=== PATIENT | male | born 1945 | race Caucasian/White ===

== ENCOUNTER 2016-08-02 05:13 | Day surgery (SDC) | payer MEDICARE, OTHER ==
[2016-08-01 15:57] LABS: BASOPHILS 0.8 % (0.0-2.0); EOSINOPHILS 3.3 % (0-7); HEMATOCRIT 30.2 % (42.0-54.0); HEMOGLOBIN 9.7 g/dL (13.5-17.5); IMMATURE GRANULOCYTES 0.2 % (0-5); LYMPHOCYTES 10.8 % (15-50); MCH 30.4 pg (26.0-34.0); MCHC 32.1 g/dL (31.0-37.0); MCV 94.7 fL (80.0-100.0); MEAN PLATELET VOLUME 9.7 fL (7.4-10.4); MONOCYTES 6.3 % (2-11); NEUTROPHILS 78.6 % (40-80); PLATELET COUNT 111 10x3/uL (130-400); RBC 3.19 10x6/uL (4.20-6.10); RDW 14.2 % (11.5-14.5); WBC 4.9 10x3/uL (4.8-10.8)
[2016-08-01 16:12] LABS: INR 1.12 (0.85-1.17); PROTIME 14.2 SECONDS (11.6-15.0)
[2016-08-01 16:19] LABS: ANION GAP 16.1 mmol/L (8-16); CALCIUM 7.3 mg/dL (8.5-10.1); CARBON DIOXIDE 24.2 mmol/L (21.0-32.0); POTASSIUM - SERUM 4.3 mmol/L (3.5-5.1)
[~2016-08-02] VITALS: Ht 182.9 cm; Wt 124.7 kg
[~2016-08-02 05:13] MED LIST: CATAPRES0.1 MG PO; COREG25 MG PO; FUROSEMIDE20 MG PO; GLIPIZIDE10 MG PO; HYDRALAZINE HCL25 MG PO; LASIX80 MG PO; LOW DOSE ASPIRI81 M1 PO; PROBIOTIC1 EAC1 PO; PROSCAR5 MG PO; RENVELA800 MG PO; ZOCOR40 MG PO; ZYRTEC10 MG PO
[2016-08-02 07:00] VITALS: Ht 182.9 cm; Wt 124.7 kg
[2016-08-02] MEDS ORDERED: ULTRAM50 MG PO (09:55)
--- NOTE | 2016-08-02 11:11 | NUR ---
IV DC WITH CATHER TIP INTACT
--- NOTE | 2016-08-02 14:04 | OP ---
PATIENT NAME: PEYTON SHEPPARD MEDICAL RECORD: [id number] :44 LOCATION:[facility] ADMISSION DATE: SURGEON: CHANDNI STANTON MD DATE OF OPERATION: 08/02/2016 REFERRED BY: Gela Delgadillo MD PREOPERATIVE DIAGNOSIS: Chronic kidney disease stage V. POSTOPERATIVE DIAGNOSIS: Chronic kidney disease stage V. OPERATION PERFORMED: Creation of a left radiocephalic Martin-type AV fistula. SURGEON: Chandni Stanton MD ANESTHESIA: General plus regional nerve block by WILLI and Dr. Christiansen. PREOPERATIVE NOTE: Mr. Shpepard is a 71-year-old hypertensive diabetic man with failing kidneys and now CKD stage V. It is anticipated that he will require initiation of dialysis, probably this year or next. He was referred to me by Dr. Delgadillo for creation of a fistula. His preoperative vein mapping indicates the veins in the forearm and wrist to be rather small and I anticipate that will do a brachiocephalic or median cubital AV fistula if that proves to be the case. Under anesthesia and after the nerve block was administered of course, the arm was prepped and draped in a sterile manner. Topical nitroglycerin paste was applied and a [place] drain was used as a proximal venous tourniquet. Examination with ultrasound demonstrated the cephalic vein at the wrist to be greater than 5 mm in diameter and the radial artery looked healthy without significant atherosclerotic changes and certainly the proximal veins were very suitable for access. I elected to go ahead with a wrist fistula. A longitudinal incision was made and the cephalic vein and radial artery exposed. Branches and tributaries divided between ties, clips and divided with scissors and electrocautery. The vessels were controlled with Silastic loops and approximated side to side. After they were occluded, the vein was opened for approximately 8 mm and the vein was flushed proximally and distally with heparinized saline. A corresponding arteriotomy was then made and the artery flushed proximally and distally with heparinized saline and the anastomosis was then performed with running 7-0 Prolene. At its completion with release of the occluding loops and mandaen of proximal flow in the cephalic vein before distalward flow in the radial artery, excellent flow developed immediately in the fistula with a good pulsation and palpable thrill. Doppler examination confirmed. The wound was irrigated and infiltrated with 0.25% Marcaine with epinephrine. Topical papaverine had been used prior to the anastomosis and was not required afterwards. The wound was closed without the use of a drain with interrupted inverted 3-0 Vicryl and then running intracuticular 4-0 Monocryl and Dermabond glue. It was dressed with Maxorb Ag, Tegaderm and Cavilon skin prep and the patient then with great fistula was awakened and taken to the recovery room. Blood loss was trivial, certainly unreplaced. All sponges, instruments and needles were accounted for. No drain was used and no specimen was submitted for histopathology. OPERATIVE REPORT [id number] PEYTON SHEPPARD The patient will be discharged to home in [place] this morning. He will return to see me in my office in 2 weeks. He can resume activities, even bathing and showering and washing over the waterproof plastic dressing as desired. I would prefer that he leave the dressing intact if possible until he returns to see me in my office in 2 weeks. He is given a prescription for twenty 50 mg tramadol tablets 1 p.o. q.4 hours p.r.n. pain, no refills. TRANSINT:[id number] Voice Confirmation ID: [id number] DOCUMENT ID: [id number] CHANDNI STANTON MD at 1404 CC: GELA DELGADILLO MD [id number] DICTATION DATE: 08/02/16 1005 PEST CONTROL TECHNICIAN: 08/02/16 1052 [facility] [address] [place] [address]
== END 2016-08-02 11:25 | disposition home or self-care (01) ==
LOC: D.OPS 05:13 → D.PAN 08:00 → D.OPS 08:00
PROVIDERS: Surgery
DX: E11.22 Type 2 diabetes mellitus with diabetic chronic kidney disease (principal); I12.0 Hypertensive chronic kidney disease with stage 5 chronic kidney disease or end stage renal disease; N18.5 Chronic kidney disease, stage 5

== ENCOUNTER 2016-10-21 06:09 | Day surgery (SDC) | payer MEDICARE, OTHER ==
[2016-10-19 11:46] LABS: BASOPHILS 0.7 % (0-2); EOSINOPHILS 1.8 % (0-7); HEMATOCRIT 29.8 % (42.0-54.0); HEMOGLOBIN 9.7 g/dL (13.5-17.5); IMMATURE GRANULOCYTES 0.5 % (0-5); LYMPHOCYTES 12.7 % (15-50); MCH 31.2 pg (26.0-34.0); MCHC 32.6 g/dL (31.0-37.0); MCV 95.8 fL (80.0-100.0); MEAN PLATELET VOLUME 10.9 fL (7.4-10.4); MONOCYTES 6.1 % (2-11); NEUTROPHILS 78.2 % (40-80); PLATELET COUNT 115 10x3/uL (130-400); RBC 3.11 10x6/uL (4.20-6.10); RDW 13.2 % (11.5-14.5); WBC 6.1 10x3/uL (4.8-10.8)
[2016-10-19 12:03] LABS: APTT 32.7 SECONDS (22.8-39.4); INR 1.13 (0.85-1.17); PROTIME 14.4 SECONDS (11.6-15.0)
[2016-10-19 12:11] LABS: ANION GAP 15.1 mmol/L (8-16); CALCIUM 8.4 mg/dL (8.5-10.1); CARBON DIOXIDE 26.9 mmol/L (21.0-32.0); CREATININE - SERUM 9.7 mg/dL (0.6-1.3)
[~2016-10-21] VITALS: Ht 182.9 cm; Wt 109.8 kg
[~2016-10-21 06:09] MED LIST changes: +JANUVIA25 MG PO; +ULTRAM50 MG PO
[2016-10-21 06:34] VITALS: Ht 182.9 cm; Wt 109.8 kg
[2016-10-21 07:06] LABS: POTASSIUM - SERUM 3.6 mmol/L (3.5-5.1)
[2016-10-21] MEDS ORDERED: HYDROCODON-ACE1 EAC7 PO (12:49)
[2016-10-21] MEDS ORDERED: MUCOMYST 2800 MG/4 M PO (13:10)
--- NOTE | 2016-10-21 15:14 | NUR ---
ANESTHESIA HERE AND LOOKED AT RIGHT EYE AND STATES IT LOOKS SELF RESOLVING.
--- NOTE | 2016-10-21 18:15 | NUR ---
1530 LEFT ARM GOOD BRUIT AND THRILL DRESSING C/D/I NO BLEEDING ABDOMEN DRESSINGS C/D/I NO BLEEDING. PAIN A 2 OFFERED PAIN MEDS REFUSED. ENCOURAGED WATER.
--- NOTE | 2016-10-21 18:16 | NUR ---
[address] STANTON UNABLE TO URINATE. ORDERS RECEIVED AND FLOMAX GIVEN TOLD DID NOT HAVE TO URINATE IN ORDER TO GO HOME.
--- NOTE | 2016-10-21 18:19 | NUR ---
8659 TRIED TO URINATE DOES NOT WANT TO STAY WANTS TO GO HOME. IV DCD CATHETER INTACT. ABDOMINAL BINDER ON PATIENT AND TOLD PATIENT DOES NOT HAVE TO WEAR IT IF HE DOESN'T WANT TO BUT WILL HELP WITH COUGHING OR SNEEZING. WENT OVER DISCHARGE INSTRUCTIONS SCRIPT AND VERBALLY UNDERSTANDS.
--- NOTE | 2016-10-21 18:21 | NUR ---
1700 TO HOME VIA W/C WITH .
== END 2016-10-21 17:00 | disposition home or self-care (01) ==
LOC: D.OPS 06:09 → D.PAN 08:00 → D.OPS 08:00
PROVIDERS: Anesthesiology; Surgery
DX: T82.858A Stenosis of other vascular prosthetic devices, implants and grafts, initial encounter (principal); N18.5 Chronic kidney disease, stage 5; Z99.2 Dependence on renal dialysis; K42.9 Umbilical hernia without obstruction or gangrene; Z01.810 Encounter for preprocedural cardiovascular examination; Z01.811 Encounter for preprocedural respiratory examination; Z01.812 Encounter for preprocedural laboratory examination

== ENCOUNTER 2016-10-21 22:10 | Emergency (ER) | payer MEDICARE, OTHER ==
[2016-10-21 06:34] VITALS: BMI 32.9
[~2016-10-21 22:10] MED LIST changes: +HYDROCODON-ACE1 EAC7 PO; +MUCOMYST 2800 MG/4 M PO
[2016-10-21 23:41] LABS: APPEARANCE CLOUDY (CLEAR); BILIRUBIN NEGATIVE (NEGATIVE); COLOR YELLOW (YELLOW); GLUCOSE 50 mg/dL (NEGATIVE); KETONE NEGATIVE (NEGATIVE); LEUKOCYTE ESTERASE 2+ (NEGATIVE); NITRITE POSITIVE (NEGATIVE); PH 5.5 (5.0-6.0); PROTEIN 3+ mg/dL (NEGATIVE); SPECIFIC GRAVITY 1.015 (1.005-1.020); UROBILINOGEN NORMAL (NORMAL)
[2016-10-21 23:47] LABS: BASOPHILS 0.2 % (0-2); EOSINOPHILS 0.4 % (0-7); HEMATOCRIT 30.9 % (42.0-54.0); HEMOGLOBIN 10.1 g/dL (13.5-17.5); IMMATURE GRANULOCYTES 0.3 % (0-5); LYMPHOCYTES 6.5 % (15-50); MCH 31.2 pg (26.0-34.0); MCHC 32.7 g/dL (31.0-37.0); MCV 95.4 fL (80.0-100.0); MONOCYTES 4.7 % (2-11); NEUTROPHILS 87.9 % (40-80); PLATELET COUNT 107 10x3/uL (130-400); RBC 3.24 10x6/uL (4.20-6.10); RDW 12.9 % (11.5-14.5); WBC 9.7 10x3/uL (4.8-10.8)
[2016-10-21 23:52] LABS: AMORPHOUS SEDIMENT >1+ /lpf (NONE SEEN); BACTERIA MANY /hpf (NONE SEEN); EPITHELIAL CELLS 0-5 /hpf (0-5); HYALINE CAST OCC /lpf (NONE SEEN); WHITE CELLS - URINE >50 /hpf (0-5)
[2016-10-22 00:13] LABS: ANION GAP 18.7 mmol/L (8-16); CALCIUM 8.4 mg/dL (8.5-10.1); CARBON DIOXIDE 23.4 mmol/L (21.0-32.0); CREATININE - SERUM 8.9 mg/dL (0.6-1.3); POTASSIUM - SERUM 4.1 mmol/L (3.5-5.1)
== END 2016-10-22 06:52 | disposition home or self-care (01) ==
LOC: D.ER 22:10
PROVIDERS: Emergency Medicine
DX: R33.9 Retention of urine, unspecified (principal); N39.0 Urinary tract infection, site not specified

== ENCOUNTER 2017-06-08 05:54 | Day surgery (SDC) | payer MEDICARE, OTHER ==
[~2017-06-08] VITALS: Ht 182.9 cm; Wt 107.5 kg
--- NOTE | ~2017-06-08 | OP ---
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 OPERATION PERFORMED: Ultrasound and fluoroscopic-guided insertion of a right internal jugular 19-cm HemoSplit tunneled dialysis catheter followed by removal of peritoneal dialysis catheter. SURGEON: Chandni Stanton MD ANESTHESIA: General endotracheal per WILLI and Dr. Sargent. REFERRING PHYSICIAN: Gela Delgadillo MD PREOPERATIVE NOTE: Mr. Sheppard is a 72-year-old white male patient from [place], [place], who in July of this year when not yet requiring dialysis, he had a left wrist radiocephalic AV fistula constructed, this failed to mature despite interventions. In October of this year, I laparoscopically implanted a peritoneal dialysis catheter. He has recently had recurring episodes of peritonitis and Dr. Delgadillo has requested that I remove this peritoneal dialysis catheter and since he has no other way to dialyze, we will place a tunneled dialysis catheter. PROCEDURE: With the patient under anesthesia in supine position, he is prepped and draped in sterile manner. The right internal jugular vein was located with ultrasound. It was noted to be of normal caliber and there was no visible intraluminal abnormality, thrombus, etc. It was fully compressible. A small incision was made at the base of the neck on the right over the internal jugular vein and with continuous ultrasound guidance, a needle and guidewire were placed into the internal jugular vein and under fluoroscopy, the wire was advanced into the right atrium and serial dilators were passed and still under fluoroscopy, the peel-away introducer was inserted. I chose a 19-cm HemoSplit catheter and chose a site for the entry incision. A small incision made there beneath the clavicle and the catheter was pulled through the subcutaneous tunnel and then inserted through the peel-away sheath, which was of course removed. The catheter was positioned nicely in the right atrium. Fluoroscopy revealed no complications, kinks, etc. The catheter lumens were both accessed and aspirated, free return of blood confirmed. They were then flushed with saline and lastly with heparin lock solution. The catheter was sutured to the skin near the entry site with 2-0 Prolene and the cervical incision closed with interrupted inverted 3-0 Vicryl and Dermabond glue. It was dressed with Maxorb Ag, Tegaderm and Cavilon skin prep. A chlorhexidine disc was placed on the catheter at the exit site and over that a standard central venous transparent dressing was applied. The abdomen was then exposed and a transverse incision made adjacent to the peritoneal dialysis catheter exit site. Electrocautery dissection exposed the catheter and freed the superficial Dacron felt cuff and OPERATIVE REPORT [id number] PEYTON SHEPPARD further dissection with electrocautery exposed the deeper cuff just beneath the anterior rectus sheath. The catheter was freed from the connective tissue and then totally removed. It was totally clean in appearance. There was no visible fibrin or other evidence of infection or chronic inflammation. I discarded the catheter and did not send it for culture or any other examinations. The wound was irrigated with Ancef and gentamicin solution, it was infiltrated with 0.25% Marcaine without epinephrine and the subcutaneous tissues then approximated with 2 interrupted inverted 3-0 Vicryl sutures and the skin closed with chiqui. Triple antibiotic ointment was applied to the old exit site. The wound was covered with Maxorb AG and a Medipore dressing. The patient then awakened and extubated, was taken to the recovery room. During the procedure, there was minimal blood loss, perhaps 5 cc. No specimen was submitted. All sponges, instruments and needles were accounted for and of course no drain was utilized. In the recovery room, the patient had persistent bleeding from the right cervical wound and catheter exit site. This is treated with 20 mcg of DDAVP administered intravenously in the recovery room and elevation of the head of bed, pressure, ice, etc. PLAN: The patient should be able to go home today assuming we get the bleeding stopped soon. He can leave the original dressing intact or may remove it and redressed the incisions with a clean, dry gauze as desired. He is to continue his same home medications and continue his routine dialysis schedule. An appointment will be arranged for him to see me in my office next week for wound check and staple removal. TRANSINT:[id number] Voice Confirmation ID: [id number] DOCUMENT ID: [id number] CHANDNI STANTON MD at 1001 CC: GELA DELGADILLO MD [id number] DICTATION DATE: 06/08/17 0958 FEDERAL DISTRICT CLERK: 06/08/17 1244 [facility] 06/08/17 [place] [id number] [place] [id number]
[~2017-06-08 05:54] MED LIST changes: -COREG25 MG PO; +COREG6.25 MG PO
[2017-06-08 06:33] LABS: BASOPHILS 0.5 % (0-2); EOSINOPHILS 3.4 % (0-7); HEMATOCRIT 31.7 % (42.0-54.0); HEMOGLOBIN 10.5 g/dL (13.5-17.5); IMMATURE GRANULOCYTES 0.9 % (0-5); LYMPHOCYTES 8.9 % (15-50); MCH 32.2 pg (26.0-34.0); MCHC 33.1 g/dL (31.0-37.0); MCV 97.2 fL (80.0-100.0); MEAN PLATELET VOLUME 8.7 fL (7.4-10.4); MONOCYTES 9.5 % (2-11); NEUTROPHILS 76.8 % (40-80); RBC 3.26 10x6/uL (4.20-6.10); WBC 6.5 10x3/uL (4.8-10.8)
[2017-06-08 06:36] LABS: PLATELET COUNT 130 10x3/uL (130-400)
[2017-06-08 06:42] LABS: INR 1.08 (0.85-1.17); PROTIME 13.6 SECONDS (11.6-15.0)
[2017-06-08 06:43] LABS: APTT 46.9 SECONDS (22.8-39.4)
[2017-06-08 06:45] LABS: ANION GAP 19.4 mmol/L (8-16); CALCIUM 8.6 mg/dL (8.5-10.1); CARBON DIOXIDE 25.2 mmol/L (21.0-32.0); CREATININE - SERUM 10.4 mg/dL (0.6-1.3); POTASSIUM - SERUM 3.6 mmol/L (3.5-5.1)
[2017-06-08] MEDS ORDERED: FOLIC ACID1 MG PO (06:46)
[2017-06-08] MEDS ORDERED: ROCALTROL0.25 MCG PO (06:47)
[2017-06-08] MEDS ORDERED: JANUVIA25 MG PO (06:48)
[2017-06-08] MEDS ORDERED: HYDRALAZINE HC100 MG PO (06:49)
[2017-06-08] MEDS ORDERED: HEPARIN SO1000 UNIT/ OTH (06:52)
[2017-06-08] MEDS ORDERED: VITAMIN B-1000 MCG/M IM (06:52)
[2017-06-08] MEDS ORDERED: ARANESP200 MCG/0. SC (06:53)
[2017-06-08] MEDS ORDERED: FLOMAX0.4 MG PO (06:54)
[2017-06-08] MEDS ORDERED: SODIUM BICARBO325 MG PO (06:55)
[2017-06-08] MEDS ORDERED: RENVELA800 MG PO (06:55)
[2017-06-08] MEDS ORDERED: COLACE100 MG PO (06:57)
[2017-06-08] MEDS ORDERED: MIRALAX17 GM PO (06:57)
[2017-06-08] MEDS ORDERED: FORTAZ INJ500 MG OTH (06:58)
[2017-06-08 07:10] VITALS: Ht 182.9 cm; Wt 107.5 kg
[2017-06-19] MEDS ORDERED: TOBRAMYCIN S40 MG/M1 IV (15:24)
== END 2017-06-08 12:20 | disposition home or self-care (01) ==
LOC: D.OPS 05:54
PROVIDERS: Internal Medicine Nephrology
DX: E11.22 Type 2 diabetes mellitus with diabetic chronic kidney disease (principal); I12.0 Hypertensive chronic kidney disease with stage 5 chronic kidney disease or end stage renal disease; N18.6 End stage renal disease; Z99.2 Dependence on renal dialysis; T82.7XXA Infection and inflammatory reaction due to other cardiac and vascular devices, implants and grafts, initial encounter; G47.30 Sleep apnea, unspecified; Z01.812 Encounter for preprocedural laboratory examination

== ENCOUNTER 2017-06-20 05:39 | Day surgery (SDC) | payer MEDICARE, OTHER ==
[2017-06-19 16:23] LABS: CALCIUM 8.8 mg/dL (8.5-10.1); CARBON DIOXIDE 28.7 mmol/L (21.0-32.0); CREATININE - SERUM 6.3 mg/dL (0.6-1.3); POTASSIUM - SERUM 3.7 mmol/L (3.5-5.1)
[2017-06-19 16:24] LABS: BASOPHILS 0.9 % (0-2); HEMATOCRIT 27.3 % (42.0-54.0); IMMATURE GRANULOCYTES 2.4 % (0-5); LYMPHOCYTES 10.9 % (15-50); MCV 97.2 fL (80.0-100.0); MEAN PLATELET VOLUME 8.4 fL (7.4-10.4); MONOCYTES 9.2 % (2-11); NEUTROPHILS 71.6 % (40-80); PLATELET COUNT 111 10x3/uL (130-400); RBC 2.81 10x6/uL (4.20-6.10); RDW 13.9 % (11.5-14.5); WBC 5.4 10x3/uL (4.8-10.8)
[2017-06-19 16:33] LABS: APTT 33.2 SECONDS (22.8-39.4); INR 1.02 (0.85-1.17)
[~2017-06-20] VITALS: Ht 182.9 cm; Wt 113.4 kg
--- NOTE | ~2017-06-20 | OP ---
PATIENT NAME: PEYTON SHEPPARD MEDICAL RECORD: [id number] :44 LOCATION:[facility] ADMISSION DATE: SURGEON: CHANDNI STANTON MD DATE OF OPERATION: 06/20/2017 PREOPERATIVE DIAGNOSIS: End-stage renal disease and dependence on hemodialysis. POSTOPERATIVE DIAGNOSIS: End-stage renal disease and dependence on hemodialysis. OPERATION PERFORMED: Creation of a Martin-type proximal radial artery based bidirectional fistula in the left arm with outflow primarily to the cephalic vein and median antebrachial vein. SURGEON: Chandni Stanton MD ANESTHESIA: Regional block plus general with LMA per PLANNING SUPERVISOR. REFERRING PHYSICIAN: Gela Delgadillo MD PREOPERATIVE NOTE: Mr. Sheppard is a very nice 72-year-old white male with end-stage renal disease, presently dependent on a right internal jugular HemoSplit tunneled dialysis catheter. He has had 1 failed left radiocephalic Martin fistula and I recently had to remove his peritoneal dialysis catheter due to infection. He is brought back to the operating room today as an outpatient with plans to create a new more proximal fistula in the left arm. Under axillary block or regional block as well as general anesthetic administered by PLANNING SUPERVISOR with an LMA, the patient was placed in supine position and prepped and draped in sterile manner. I examined him with duplex ultrasound after applying topical nitroglycerin and using a [place] drain as a proximal venous tourniquet, the patient had a very nice median cubital vein and very nice cephalic and basilic veins above that and a good median antebrachial vein in the forearm. I made a vertically oriented incision and exposed the vessels. The vein was treated with topical papaverine and the deep or communicating branch was divided between Vicryl ligatures and other tributaries were also divided leaving the antebrachial vein and cephalic vein outflows. The brachial artery was large, its bifurcation was exposed, and the proximal radial and ulnar arteries were controlled with Silastic loops as was the distal brachial, the vein was opened and flushed with heparinized saline. The artery was likewise opened and flushed proximally and distally with heparinized saline and a [id number] anastomosis performed with running 7-0 Prolene. First, a 2.5 mm coronary artery dilator was used to disrupt valves in the antebrachial vein in the forearm. When the anastomosis was complete, it was treated with an application of Evicel fibrin glue and after the 2 minutes had elapsed, the occluding loops and clamps were released, and excellent flow was established immediately within the fistula. Doppler examination demonstrated good pulsatile continuous flow in the fistula primarily via the proximal outflow, but also to a lesser degree via the median antebrachial vein. The radial and ulnar arteries and brachial arteries had good Doppler sounds and there was good pulsatile Doppler signals at the wrist in both the radial and ulnar arteries. The patient's wound was irrigated with saline and then closed without the use of a drain approximating the subcutaneous tissues with interrupted inverted 3-0 Vicryl and closing the skin with a running 4-0 Monocryl and Dermabond glue. It was dressed with Maxorb AG, Tegaderm, and Cavilon skin prep and the patient OPERATIVE REPORT [id number] SILVERPEYTON GARCIA awakened. I had then requested to "look at" the patient's tunneled dialysis catheter. I did undress it and looked at it and manipulated it a little bit and it seems to be fixed in that tunnel. There was no evidence of any significant infection or other problems, it was redressed with a chlorhexidine Biopatch in the standard central venous catheter dressing. PLAN: I will plan for Mr. Sheppard to go home today and continue his usual renal diet and all of his same medications and his routine dialysis schedule. He will be scheduled to see me in my office in about a week. He is given a prescription for [place] 5/325 one or if necessary 2 every 6 hours p.r.n. for pain and he is given a total of 10 tablets. He is advised to wash the arm as desired and wash over the waterproof plastic dressing without any problem. He is also encouraged to leave the original dressing intact until he sees me in the office next week at which time I will change the dressing to check his wound. TRANSINT:[id number] Voice Confirmation ID: [id number] DOCUMENT ID: [id number] CHANDNI STANTON MD CC: GELA DELGADILLO MD [id number] DICTATION DATE: 06/20/17 1011 JEWELRY ENGRAVER: 06/20/17 1146 [facility] [address] [place] [address]
[~2017-06-20 05:39] MED LIST changes: +ARANESP200 MCG/0. SC; +COLACE100 MG PO; +FLOMAX0.4 MG PO; +FOLIC ACID1 MG PO; +FORTAZ INJ500 MG OTH; +HEPARIN SO1000 UNIT/ OTH; +HYDRALAZINE HC100 MG PO; +MIRALAX17 GM PO; +ROCALTROL0.25 MCG PO; +SODIUM BICARBO325 MG PO; +TOBRAMYCIN S40 MG/M1 IV; +VITAMIN B-1000 MCG/M IM
[2017-06-20] MEDS ORDERED: HYDRALAZINE HC100 MG PO (06:31)
[2017-06-20] MEDS ORDERED: PROCRIT/EP2000 UNITS SC (06:37)
[2017-06-20 07:49] VITALS: Ht 182.9 cm; Wt 113.4 kg
[2017-06-20] MEDS ORDERED: HYDROCODON-ACE1 EAC7 PO (10:00)
== END 2017-06-20 12:50 | disposition home or self-care (01) ==
LOC: D.OPS 05:39 → D.PAN 08:00 → D.OPS 12:50
PROVIDERS: Surgery
DX: N18.6 End stage renal disease (principal); Z99.2 Dependence on renal dialysis; Z01.812 Encounter for preprocedural laboratory examination

== ENCOUNTER → 2017-06-26 07:39 | Outpatient (CLI) | payer MEDICARE, OTHER ==
[~2017-06-26 07:39] MED LIST changes: +PROCRIT/EP2000 UNITS SC
== END | disposition home or self-care (01) ==
LOC: D.LAB 07:39
DX: Z51.81 Encounter for therapeutic drug level monitoring (principal); Z79.2 Long term (current) use of antibiotics

== ENCOUNTER → 2017-07-03 08:06 | Outpatient (CLI) | payer MEDICARE, OTHER | END | disposition home or self-care (01) | LOC: D.LAB 08:06 | DX: Z51.81 Encounter for therapeutic drug level monitoring (principal); Z79.2 Long term (current) use of antibiotics ==

== ENCOUNTER 2017-09-04 07:00 | Day surgery (SDC) | payer MEDICARE, OTHER ==
[~2017-09-04] VITALS: Ht 182.9 cm; Wt 107.5 kg
--- NOTE | ~2017-09-04 | OP ---
PATIENT NAME: PEYTON SHEPPARD MEDICAL RECORD: [id number] :44 LOCATION:[facility] ADMISSION DATE: SURGEON: NNAMDI LEONARD DO DATE OF OPERATION: 09/04/2017 PROCEDURE: Colonoscopy with polypectomy. INDICATION FOR PROCEDURE: Fecal occult blood positive and abnormal weight loss. SCOPE: Olympus video pediatric colonoscope. MEDICATIONS: Propofol 450 mg IV per anesthesia. ESTIMATED BLOOD LOSS: Minimal. COMPLICATIONS: None. FINDINGS: Informed consent was given. The patient was made comfortable with the above medication. After reaching an adequate level of sedation by slow IV push, the patient was placed on his left side. A digital rectal examination was performed and was normal. The endoscope was then advanced under direct visualization through the rectum to the cecum with visualization of the appendiceal orifice and ileocecal valve. The terminal ileum was briefly intubated and appeared normal. The endoscope was then slowly withdrawn and mucosa was carefully examined. Quality of prep was good. There was evidence of mild diverticulosis in the sigmoid colon on this examination. There was no evidence of diverticulitis. There were multiple polyps visualized on today's examination. Three were located in the ascending colon. They ranged in size from 4 mm to approximately 1 cm. The first polyp which was the smallest was removed using hot snare in one piece and completely retrieved. There was some residual bleeding from this polyp, so a single endoclip was placed for hemostasis successfully. The other 2 polyps which were larger, were removed using endoscopic mucosal resection with injection of saline pillow successfully followed by snare polypectomy in one piece. In the transverse colon was a single polyp, which measured approximately 9 mm in diameter. It was removed using EMR technique with saline injection for a saline pillow followed by a snare resection in one piece. In the descending colon was another polyp which was benign appearing and sessile. It measured approximately 6-7 mm in diameter and was removed using hot snare in one piece and completely retrieved. Retroflexion was performed in the rectum with a normal appearing rectal wall. The endoscope was then withdrawn from the patient. The patient tolerated the procedure well and there were no complications. IMPRESSION: 1. Diverticulosis without diverticulitis involving the sigmoid colon. 2. Multiple polyps as described above, removed using a hot snare and endoscopic mucosal resection technique. PLAN AND RECOMMENDATIONS: 1. Discharge home when recovery parameters are met. 2. Follow up biopsy specimen results. 3. High fiber diet. 4. Continue current medications. 5. The patient will need a referral to cardiology for newly discovered atrial fibrillation. This has been discussed with the patient. OPERATIVE REPORT [id number] PEYTON SHEPPARD 6. Recommend a repeat colonoscopy in 6 months to 1 year pending pathology results from polyps removed today. TRANSINT:[id number] Voice Confirmation ID: [id number] DOCUMENT ID: [id number] NNAMDI LEONARD DO at 1524 CC: [id number] DICTATION DATE: 09/04/17937 HOME INSPECTOR: 09/04/17 1200 [facility] 09/04/17 [facility] [address] [place] [address]
[2017-09-04] MEDS ORDERED: OMEPRAZOLE20 M1 PO (07:33)
[2017-09-04] MEDS ORDERED: FERROUS SULFAT325 MG PO (07:33)
[2017-09-04] MEDS ORDERED: NEPHRO-VITE RX1 TAB PO (07:33)
[2017-09-04 07:52] LABS: ANION GAP 15.4 mmol/L (8-16); CALCIUM 8.9 mg/dL (8.5-10.1); CARBON DIOXIDE 27.3 mmol/L (21.0-32.0); CREATININE - SERUM 5.4 mg/dL (0.6-1.3); POTASSIUM - SERUM 3.7 mmol/L (3.5-5.1)
[2017-09-04 07:53] VITALS: BP 118/81; Ht 182.9 cm; Wt 107.5 kg
[2017-09-04 07:58] LABS: BASOPHILS 2.4 % (0-2); EOSINOPHILS 4.9 % (0-7); HEMATOCRIT 36.2 % (42.0-54.0); IMMATURE GRANULOCYTES 0.5 % (0-5); LYMPHOCYTES 13.9 % (15-50); MCHC 33.1 g/dL (31.0-37.0); MCV 99.5 fL (80.0-100.0); MEAN PLATELET VOLUME 9.8 fL (7.4-10.4); MONOCYTES 11.9 % (2-11); NEUTROPHILS 66.4 % (40-80); RBC 3.64 10x6/uL (4.20-6.10); WBC 4.1 10x3/uL (4.8-10.8)
[2017-09-04 08:05] LABS: INR 1.13 (0.85-1.17); PROTIME 14.1 SECONDS (11.6-15.0)
[2017-09-04 08:06] LABS: APTT 35.5 SECONDS (22.8-39.4)
[2017-09-04 08:09] LABS: PLATELET COUNT 80 10x3/uL (130-400)
[2017-09-04 09:11] LABS: PLATELET ESTIMATE DECREASED
== END 2017-09-04 10:47 | disposition home or self-care (01) ==
LOC: D.OPS 07:00
PROVIDERS: Anesthesiology
DX: R63.4 Abnormal weight loss (principal); I12.0 Hypertensive chronic kidney disease with stage 5 chronic kidney disease or end stage renal disease; N18.6 End stage renal disease; G47.30 Sleep apnea, unspecified; Z01.812 Encounter for preprocedural laboratory examination; R19.5 Other fecal abnormalities

== ENCOUNTER 2020-02-04 14:25 | Emergency (ER) | payer MEDICARE, OTHER ==
[~2020-02-04] VITALS: Ht 182.9 cm; Wt 118.2 kg
[~2020-02-04 14:25] MED LIST changes: +FERROUS SULFAT325 MG PO; +NEPHRO-VITE RX1 TAB PO; +OMEPRAZOLE20 M1 PO
[2020-02-04 14:29] VITALS: BP 144/86; Ht 182.9 cm; Wt 118.2 kg
[2020-02-04] MEDS ORDERED: ELIQUIS2.5 MG PO (14:30)
[2020-02-04 15:10] LABS: BASOPHILS 1.3 % (0-2); EOSINOPHILS 3.1 % (0-7); HEMATOCRIT 43.2 % (42.0-54.0); HEMOGLOBIN 14.3 g/dL (13.5-17.5); IMMATURE GRANULOCYTES 1.6 % (0-5); LYMPHOCYTES 24.6 % (15-50); MCH 35.1 pg (26.0-34.0); MCHC 33.1 g/dL (31.0-37.0); MCV 106.1 fL (80.0-100.0); MEAN PLATELET VOLUME 10.6 fL (7.4-10.4); MONOCYTES 15.4 % (2-11); PLATELET COUNT 89 10x3/uL (130-400); RBC 4.07 10x6/uL (4.20-6.10); WBC 3.8 10x3/uL (4.8-10.8)
[2020-02-04 16:50] LABS: PLATELET ESTIMATE DECREASED
== END 2020-02-04 16:01 | disposition home or self-care (01) ==
LOC: D.ER 14:25
PROVIDERS: Family Medicine
DX: S02.2XXA Fracture of nasal bones, initial encounter for closed fracture (principal); E11.9 Type 2 diabetes mellitus without complications; I10 Essential (primary) hypertension; Z79.84 Long term (current) use of oral hypoglycemic drugs; W19.XXXA Unspecified fall, initial encounter; Y93.9 Activity, unspecified; Y92.9 Unspecified place or not applicable

== ENCOUNTER 2020-09-13 09:31 | Inpatient (IN) | payer MEDICARE, OTHER ==
[2020-09-13] VITALS (11 sets, daily range): BP systolic 135–171; BP diastolic 63–92; BMI 35.9
[~2020-09-13] VITALS: Ht 182.9 cm; Wt 120.2 kg
[~2020-09-13 09:31] MED LIST changes: +ELIQUIS2.5 MG PO; +PLAVIX75 MG PO
--- NOTE | 2020-09-13 09:47 | NUR ---
RADIOLOGY AT BEDSIDE FOR CHEST X RAY.
--- NOTE | 2020-09-13 09:57 | NUR ---
PATIENT STATES THAT HE NO LONGER MAKES URINE. DR GUZMAN NOTIFIED. VERBAL ORDER TO CANCEL URINE COLLECTION AND UA.
--- NOTE | 2020-09-13 09:58 | NUR ---
WILL CLARIFY MEDICATIONS WITH DR GUZMAN PRIOR TO ADMINISTRATION RELATED TO KIDNEY FAILURE CONTRAINDICATIONS.
[2020-09-13 10:05] LABS: BASOPHILS 0.9 % (0-2); EOSINOPHILS 2.2 % (0-7); HEMATOCRIT 36.9 % (42.0-54.0); HEMOGLOBIN 12.2 g/dL (13.5-17.5); IMMATURE GRANULOCYTES 0.9 % (0-5); LYMPHOCYTES 15.4 % (15-50); MCH 34.9 pg (26.0-34.0); MCHC 33.1 g/dL (31.0-37.0); MCV 105.4 fL (80.0-100.0); MEAN PLATELET VOLUME 9.7 fL (7.4-10.4); MONOCYTES 13.8 % (2-11); NEUTROPHIL ABS# 2.17 10x3/uL (1.78-5.38); NEUTROPHILS 66.8 % (40-80); PLATELET COUNT 96 10x3/uL (130-400); RDW 13.5 % (11.5-14.5); WBC 3.3 10x3/uL (4.8-10.8)
[2020-09-13 10:19] LABS: APTT 34.4 SECONDS (22.8-39.4); INR 1.16 (0.85-1.17); PROTIME 13.7 SECONDS (11.6-15.0)
[2020-09-13 10:22] LABS: CALC OSMOLALITY 290 mosm/kg (275-300); CALCIUM 8.4 mg/dL (8.5-10.1); CARBON DIOXIDE 23.7 mmol/L (21.0-32.0); CHLORIDE - SERUM 103 mmol/L (98-107); CREATININE - SERUM 7.6 mg/dL (0.6-1.3); GLUCOSE 98 mg/dL (74-106); POTASSIUM - SERUM 4.4 mmol/L (3.5-5.1); SODIUM 139 mmol/L (136-145); UREA NITROGEN 48 mg/dL (7-18); eGFR NON AFRICAN AMERICAN 7 mL/min (90-120)
[2020-09-13 10:23] LABS: PLATELET ESTIMATE NORMAL
[2020-09-13 10:40] LABS: ALBUMIN 3.1 g/dL (3.4-5.0); ALKALINE PHOSPHATASE 72 U/L (30-120); ALT (SGPT) 14 U/L (10-68); BILIRUBIN - TOTAL 0.42 mg/dL (0.2-1.3); CKMB 3.2 U/L (0.0-3.6); CREATINE KINASE 58 UL (21-232); PROTEIN - SERUM 6.5 g/dL (6.4-8.2); TROPONIN-I 0.045 ng/mL (0.000-0.060)
--- NOTE | 2020-09-13 10:55 | NUR ---
ASSISTED TO POSITION OF COMFORT.
--- NOTE | 2020-09-13 14:52 | NUR ---
PER NEPHROLOGY, PATIENT NOW NEEDING ICU MONITORING DUE TO HIGH RISK FOR BLEEDING/EROSION OF AV FISTULA. AWAITING BED ASSIGNMENT.
--- NOTE | 2020-09-13 15:17 | NUR ---
REPORT CALLED TO RUSTY GARCIAS AT THIS TIME, ACCEPTED TO ICU.
--- NOTE | 2020-09-13 15:33 | NUR ---
PT ARRIVED TO UNIT AT THIS TIME VIA WHEELCHAIR ACCOMPANIED BY HOSPITAL STAFF. HE IS CALM AND TRANSFERRS SELF INTO BED FROM WHEELCHAIR. ALERT AND ORIENTED X 4. ABLE TO ANSWER ALL QUESTIONS APPROPRIATELY. LT UPPER ARM FISTULA SITE WITH DRESSING CDI. NO ACUTE DISTRESS NOTED. WILL CONTINUE PLAN OF CARE.
[2020-09-13] MEDS ORDERED: LEVO-T50 MCG PO (16:00)
[2020-09-13] MEDS ORDERED: PACERONE200 MG PO (16:01)
[2020-09-13] MEDS ORDERED: VELPHORO500 MG PO (16:01)
[2020-09-13] MEDS ORDERED: PROBIOTIC1 EAC1 PO ×2 (16:05→16:06)
[2020-09-13] MEDS ORDERED: CLARITIN 10 MG10 MG PO (16:09)
--- NOTE | 2020-09-13 18:05 | NUR ---
1700 RENAL ADA DIET SERVED TO PATIENT.. AT BEDSIDE AT THIS TIME.. PT IS FEEDING SELF..
[2020-09-13 18:13] LABS: BACTERIA MANY HPF (NONE SEEN); BILIRUBIN NEGATIVE (NEGATIVE); KETONE NEGATIVE (NEGATIVE); NITRITE NEGATIVE (NEGATIVE); SQUAMOUS EPITHELIAL OCC HPF (0-4); UROBILINOGEN NORMAL mg/dL (< 2); WHITE CELLS - URINE >50 HPF (0-1)
[2020-09-14] VITALS (7 sets, daily range): BP systolic 125–148; BP diastolic 72–89; Ht 182.9 cm; Wt 120.2 kg
--- NOTE | 2020-09-14 00:53 | NUR ---
PT PUT ON HOME NASAL CPAP AT 2300 FOR BED. RESTING WITHOUT COMPLAINTS
[2020-09-14 05:49] LABS: EOSINOPHILS 3.4 % (0-7); HEMATOCRIT 35.5 % (42.0-54.0); HEMOGLOBIN 11.8 g/dL (13.5-17.5); IMMATURE GRANULOCYTES 1.3 % (0-5); LYMPHOCYTE ABS# 0.58 10x3/uL (1.32-3.57); LYMPHOCYTES 15.1 % (15-50); MCH 34.5 pg (26.0-34.0); MCHC 33.2 g/dL (31.0-37.0); MCV 103.8 fL (80.0-100.0); MEAN PLATELET VOLUME 9.3 fL (7.4-10.4); MONOCYTES 12.2 % (2-11); NEUTROPHIL ABS# 2.57 10x3/uL (1.78-5.38); PLATELET COUNT 107 10x3/uL (130-400); RBC 3.42 10x6/uL (4.20-6.10); RDW 13.4 % (11.5-14.5); WBC 3.8 10x3/uL (4.8-10.8)
[2020-09-14 06:09] LABS: ALBUMIN 2.7 g/dL (3.4-5.0); ANION GAP 17.2 mmol/L (8-16); BILIRUBIN - TOTAL 0.4 mg/dL (0.2-1.3); CALCIUM 8.5 mg/dL (8.5-10.1); CARBON DIOXIDE 22.2 mmol/L (21.0-32.0); CREATININE - SERUM 8.1 mg/dL (0.6-1.3); POTASSIUM - SERUM 4.4 mmol/L (3.5-5.1); PROTEIN - SERUM 5.9 g/dL (6.4-8.2)
--- NOTE | 2020-09-14 14:19 | NUR ---
RECEIVED PT TO ROOM 2120 VIA BED. PT A/O X4, HAVASUPAI. VITAL SIGNS STABLE. RT AC AND RT WRIST IV SL. WOUND VAC TO LT ARM. RT THIGH HEMOSPLIT WITH DRESSING CDI. ORIENTED PT AND SPOUSE TO ROOM AND CALL LIGHT. PROVIDED PT WITH CUP OF ICE AND SODA. ALL NEEDS MET, CALL LIGHT IN REACH, WILL CONTINUE PLAN OF CARE.
--- NOTE | 2020-09-14 14:27 | NUR ---
NOTIFIED DANGELO HOOVER CHAIRMAN PRESIDENT AND CHIEF EXECUTIVE OFFICER AND INFORMED HER THAT PT IS HAVING PAIN AND DOES NOT HAVE ANYTHING FOR PAIN. NEW ORDER FOR NORCO 5 Q4PRN. ALSO NOTIFIED DANGELO HOOVER THAT PT HAS A NEW RT THIGH HEMOSPLIT AND CAN BE USED NOW FOR DIALYSIS.
--- NOTE | 2020-09-14 14:38 | NUR ---
NORCO GIVEN FOR PAIN LEVEL OF 9/10. PT DENIES ANY OTHER NEEDS AT THIS TIME. SPOUSE AT BEDSIDE, CALL LIGHT IN REACH.
--- NOTE | 2020-09-14 17:55 | NUR ---
PT RESTING COMFORTABLY, DID NOT WANT TO EAT HIS DINNER, ASKED FOR SOME GRAM CRACKERS INSTEAD. ALL NEEDS MET, CALL LIGHT IN REACH.
--- NOTE | 2020-09-14 19:29 | NUR ---
RECIEVED UP IN BED WITH EYES OPEN AND TV ON. ALERT AND ORIENTED X4. UP WITH ASSIST. IV TO RT FA AND IV TO RT AC BOTH SL. HEMOSPLIT TO RT THIGH. DSG TO LT UPPER ARM. CDI. [place] AND WEARS HEARING AIDES BILATERALLY. PACEMAKER TO LT CHEST. DENIES ANY NEEDS AT THIS TIME.
[2020-09-15] VITALS: BP 122/70
[2020-09-15 04:00] VITALS: BP 146/91
[2020-09-15 08:00] VITALS: BP 126/74
--- NOTE | 2020-09-15 08:00 | NUR ---
AM ROUNDING DONE WITH PATIENT USING HIS OWN BIPAP. WOUND VAC NOTED WITH C/D/I DRESSING TO LEFT UPPER ARM WITH CONT. SUCTION AT 125. ON ROOM AIR. RIGHT FA AND RT AC SEEN WITH SALINE LOCK. HEMISPLIT SEEN TO RIGHT GROIN. BILATERAL SCD ARE ON AND IN USE.
[2020-09-15 11:30] VITALS: BP 171/86
--- NOTE | 2020-09-15 11:43 | NUR ---
TO DIALYSIS VIA BED AND WOUND VAC.
--- NOTE | 2020-09-15 18:13 | NUR ---
RETURNS FROM DIALYSIS VIA BED.
[2020-09-15 21:45] VITALS: BP 134/61
--- NOTE | 2020-09-15 22:00 | NUR ---
GANTRY RIGGER AT BED SIDE, BATH COMPLETE.
[2020-09-16 01:34] VITALS: BP 129/78
--- NOTE | 2020-09-16 03:51 | NUR ---
I have reviewed this patient and I concur with the Shift Assessment completed by the Licensed Practical Nurse today this shift.
[2020-09-16 05:18] VITALS: BP 122/69
--- NOTE | 2020-09-16 07:41 | NUR ---
AM ROUNDING DONE WITH PATIENT AWAKE, ON ROOM AIR. PACEMAKER TO LEFT SIDE. RESERVE LEFT ARM WITH INTACT DRESSING ALONG WITH WOUND VAC WITH CONT. AT 125 CC/HR. RIGHT THIGH HEMISPLIT SEEN WITH INTACT DRESSING. ON ROOM AIR. HOME CPAP AT BEDSIDE. RIGHT HAND PIV WITH NS INFUSING AT 10 CC/HR. BILATERAL SCD ON AND IN USE.
[2020-09-16 08:00] VITALS: BP 139/77
[2020-09-16 10:02] LABS: BASOPHILS 0.7 % (0-2); EOSINOPHILS 3.6 % (0-7); HEMATOCRIT 35.8 % (42.0-54.0); HEMOGLOBIN 11.7 g/dL (13.5-17.5); IMMATURE GRANULOCYTES 1.7 % (0-5); LYMPHOCYTE ABS# 0.56 10x3/uL (1.32-3.57); LYMPHOCYTES 13.3 % (15-50); MCH 34.3 pg (26.0-34.0); MCHC 32.7 g/dL (31.0-37.0); MEAN PLATELET VOLUME 9.6 fL (7.4-10.4); MONOCYTES 13.5 % (2-11); NEUTROPHIL ABS# 2.83 10x3/uL (1.78-5.38); NEUTROPHILS 67.2 % (40-80); PLATELET COUNT 109 10x3/uL (130-400); RBC 3.41 10x6/uL (4.20-6.10); RDW 13.4 % (11.5-14.5); WBC 4.2 10x3/uL (4.8-10.8)
[2020-09-16 10:14] LABS: ANION GAP 16.9 mmol/L (8-16); CALCIUM 8.4 mg/dL (8.5-10.1); CARBON DIOXIDE 23.5 mmol/L (21.0-32.0); CREATININE - SERUM 8.5 mg/dL (0.6-1.3); POTASSIUM - SERUM 4.4 mmol/L (3.5-5.1)
--- NOTE | 2020-09-16 10:19 | NUR ---
NORCO GIVEN FOR PAIN TO LEFT ARM 4/10 SO THAT DRESSING OF WOUND VAC CAN BE DONE.
--- NOTE | 2020-09-16 11:28 | NUR ---
WOUND VAC DRESSING CHANGED PER ORDERS. DATED.
[2020-09-16 12:00] VITALS: BP 145/79
--- NOTE | 2020-09-16 12:04 | NUR ---
WOUND VAC MEASUREMENT IS 13 CM X 6 CM X 2.5 CN, CLEAN WOUND BED.
--- NOTE | 2020-09-16 12:28 | NUR ---
Nutrition Reassessment/Follow-up: POD 2 ligation of access, resection of infected pseudoaneurysm, hemosplit placement. Wound vac to L arm. Pt reports appetite is ok. Ate majority of breakfast this AM. Denies N/V/C/D, chewing/swallowing difficulties. Diet: Renal ADA PO intake: 50-100% Wt: 265# (09/14)IBW: 178# Last BM: 09/15 Labs noted: K+ 4.4, Glu 111, Ca 8.4 Meds reviewed Est needs: 6266-3614 kcal/day (30-35 kcal/kg IBW) 95-120 g protein/day (1.2-1.5 g/kg IBW) Fluid: 1000 mL + UOP or per MD -Encourage PO intake and honor food preferences within diet restrictions. -Offer Nepro with meals. -Rec Heron BID to promote wound healing if pt agreeable. -RD will follow up within 5-7 days if pt still admitted.
--- NOTE | 2020-09-16 13:51 | NUR ---
RIGHT THIGH HEMIPLIT DRESSING CHANGED USING STERILE TECHNIQUE. DATED.
--- NOTE | 2020-09-16 14:15 | MORECARE ---
CASE MANAGEMENT DISCHARGE SUMMARY PATIENT: PEYTON SHEPPARD UNIT: [id number] ADM DATE: 09/13/20 AGE: 75 : 44 SEX: M ROOM/BED: D.[facility] AUTHOR: CHAPIS THOMPSON PHYSICIAN: REFERRING PHYSICIAN: SABINA PAUL MD DATE OF SERVICE: 09/16/20 Case Management Discharge Planning Summary DCP REVIEW SUMMARY ANTICIPATED D/C DATE: EXPECTED LOS : CASE STATUS: DCP Initiated INITIAL REVIEW: 09/16/2020 INITIAL REVIEWER: Anny Sinclair FINAL DISCHARGE DISPOSITION: : FINAL REVIEWER: FINAL REVIEW DATE: DCP Focus Questions & Answers QUESTION: ANSWER : PATIENT: PEYTON SHEPPARD ENCOUNTER: [id number] MEDICAL RECORD#: [id number] ADMISSION DATE: 09/13/2020 DISCHARGE DATE: ATTENDING MD: SABINA BEAVERS : AGE: 75 MARITAL STATUS: M DC PLAN ID: [id number] FACILITY: [facility] PRINTED ON: 09/16/20 14:15 CT All edits/amendments must be made on the electronic document DICTATION DATE: 09/16/201414 DIRECT SALES PROFESSIONAL: DM 09/16/20 141 RPT#: [id number] DC DATE: STATUS: ADM IN [facility] [address] [place] [address] END OF REPORT
--- NOTE | 2020-09-16 14:27 | MORECARE ---
CASE MANAGEMENT DISCHARGE SUMMARY PATIENT: PEYTON STONE UNIT: [id number] ADM DATE: 09/13/20 AGE: 75 : 44 SEX: M ROOM/BED: D.2121 AUTHOR: CHAPIS THOMPSON PHYSICIAN: REFERRING PHYSICIAN: SABINA PAUL MD DATE OF SERVICE: 09/16/20 Case Management Discharge Planning Summary DCP REVIEW SUMMARY ANTICIPATED D/C DATE: EXPECTED LOS : CASE STATUS: DCP Initiated INITIAL REVIEW: 09/16/2020 INITIAL REVIEWER: Anny Sinclair FINAL DISCHARGE DISPOSITION: : FINAL REVIEWER: FINAL REVIEW DATE: DCP Focus Questions & Answers DCP Evaluation QUESTION: ANSWER Patient and/or caregiver agree upon recommended discharge plan? : Yes Patient's current cognitive status: : *Oriented to person, place, situation, time and present Patient's ability to cope with chronic illness : d. No chronic illness Patient gives permission to discuss discharge plans with: (name, relationship and number) : Jasmyne Stone - [facility] - [phone] Family / Caregiver's ability to cope with chronic illness: : a. Adequate (ability to meet patient's medical needs, ensures patient attends medical appts.) Does the patient have the ability to pay for or attain post discharge needs / services? : Yes Family / Caregiver's ability to cope with chronic illness: : a. Adequate (ability to meet patient's medical needs, ensures patient attends medical appts.) Physical Status: : Independent with ADL's Equipment needed for post hospitalization: : Wound Vac Living Arrangements: : Home with Spouse/Significant Other Partial Dependence, assistance required for: : Ambulation / Mobility Other Equipment comments: : Wound vac is ready in Results of this evaluation have been discussed with: : Patient Baseline cognitive status: : *Oriented to person, place, situation, time and present Physical environment modification needed / anticipated for discharge: : No Medication Management: : Patient states can afford medications Planned post hospital services available for patient? : Yes Pharmacy name(s): : [facility] Planned post hospital services covered by insurance plan? : Yes Does Patient have transportation to get home and to follow-up medical appointments when discharged from the hospital? : Yes Would patient like to participate in any Care Coordination programs (if applicable): : Not applicable Equipment in use: : Cane - Single Leg Equipment in use: : CPAP Equipment in use: : Walker - Rolling Mental health screen: : No mental health history Psychosocial status: : Adult with physical limitations Abuse/Neglect: : None Resources / Services in place: : Dialysis - facility hemodialysis -W- Contact information for resources in use: : [facility] in [facility] at 5:30 DCP Re-evaluation QUESTION: ANSWER Would patient like to participate in any Care Coordination programs (if applicable): : Not applicable PATIENT: PEYTON STONE ENCOUNTER: [id number] MEDICAL RECORD#: [id number] ADMISSION DATE: 09/13/2020 DISCHARGE DATE: ATTENDING MD: SABINA BEAVERS : AGE: 75 MARITAL STATUS: M DC PLAN ID: [id number] FACILITY: [facility] PRINTED ON: 09/16/20 14:27 CT All edits/amendments must be made on the electronic document DICTATION DATE: 09/16/201426 LATEX RIBBON MACHINE OPERATOR: ELIZABETH 09/16/201426 RPT#: [id number] DC DATE: STATUS: ADM IN [facility] [address] [place] [address] END OF REPORT
--- NOTE | 2020-09-16 14:39 | MORECARE ---
CASE MANAGEMENT DISCHARGE SUMMARY PATIENT: PEYTON SHEPPARD UNIT: [id number] ADM DATE: 09/13/20 AGE: 75 : 44 SEX: M ROOM/BED: D.3880 AUTHOR: DONNA,DOC PHYSICIAN: REFERRING PHYSICIAN: SABINA PAUL MD DATE OF SERVICE: 09/16/20 Case Management Discharge Planning Summary COMMENTS ENTERED DATE: 09/16/20 14:23 CT COMMENT TYPE: Discharge Planning REVIEWER: Anny Sinclair CM has received the approval for home wound vac from [facility]. I have not "placed/printed" the wound vac but it is ready when he is ready for discharge to get from [employer]. I met with patient to discuss discharge planning/needs. He does not want to go to rehab. He does consent to home health for wound vac changes. ANALIA for [facility] signed. He states he has gone to [facility] in the past, I explained to him that he cannot go to OP PT at the same time he has Home health, that if he needs PT, home health can do that as well. He dialyzes MWF at [facility] dialysis in [place] at 05:30. He sates his PCP is Dr. Yoni Reynoso in [place]. States he has a CPAP from [employer]. States he uses a cane or walker if needed. I have notified Yoni with [email or web address] [facility] and clinical and order faxed. When medically ready for DC, he will go home with [facility] and home wound vac. DCP REVIEW SUMMARY ANTICIPATED D/C DATE: EXPECTED LOS : CASE STATUS: DCP Initiated INITIAL REVIEW: 09/16/2020 INITIAL REVIEWER: Anny Sinclair FINAL DISCHARGE DISPOSITION: : FINAL REVIEWER: FINAL REVIEW DATE: DCP Focus Questions & Answers DCP Evaluation QUESTION: ANSWER Patient and/or caregiver agree upon recommended discharge plan? : Yes Patient's current cognitive status: : *Oriented to person, place, situation, time and present Patient's ability to cope with chronic illness : d. No chronic illness Patient gives permission to discuss discharge plans with: (name, relationship and number) : Jasmyne Sheppard - spouse - [phone] Family / Caregiver's ability to cope with chronic illness: : a. Adequate (ability to meet patient's medical needs, ensures patient attends medical appts.) Does the patient have the ability to pay for or attain post discharge needs / services? : Yes Family / Caregiver's ability to cope with chronic illness: : a. Adequate (ability to meet patient's medical needs, ensures patient attends medical appts.) Physical Status: : Independent with ADL's Equipment needed for post hospitalization: : Wound Vac Living Arrangements: : Home with Spouse/Significant Other Partial Dependence, assistance required for: : Ambulation / Mobility Other Equipment comments: : Wound vac is ready in Results of this evaluation have been discussed with: : Patient Baseline cognitive status: : *Oriented to person, place, situation, time and present Physical environment modification needed / anticipated for discharge: : No Medication Management: : Patient states can afford medications Planned post hospital services available for patient? : Yes Pharmacy name(s): : [facility] Planned post hospital services covered by insurance plan? : Yes Does Patient have transportation to get home and to follow-up medical appointments when discharged from the hospital? : Yes Would patient like to participate in any Care Coordination programs (if applicable): : Not applicable Equipment in use: : Cane - Single Leg Equipment in use: : CPAP Equipment in use: : Walker - Rolling Mental health screen: : No mental health history Psychosocial status: : Adult with physical limitations Abuse/Neglect: : None Resources / Services in place: : Dialysis - facility hemodialysis - Contact information for resources in use: : [facility] in [facility] at 5:30 DCP Re-evaluation QUESTION: ANSWER Would patient like to participate in any Care Coordination programs (if applicable): : Not applicable PATIENT: PEYTON SHEPPARD ENCOUNTER: [id number] MEDICAL RECORD#: [id number] ADMISSION DATE: 09/13/2020 DISCHARGE DATE: ATTENDING MD: SABINA BEAVERS : AGE: 75 MARITAL STATUS: M DC PLAN ID: [id number] FACILITY: [facility] PRINTED ON: 09/16/20 14:38 CT All edits/amendments must be made on the electronic document DICTATION DATE: 09/16/201437 COMMISSARY HELPER: ELIZABETH 09/16/201437 RPT#: [id number] DC DATE: STATUS: ADM IN [facility] [address] [place] [address] END OF REPORT
[2020-09-16 15:30] VITALS: BP 133/74
[2020-09-16 20:37] VITALS: BP 142/81
--- NOTE | 2020-09-16 20:50 | NUR ---
RECIEVED UP IN BED WITH EYES OPEN AND TV ON. ALERTY AND ORIENTED X4. UP WITH ASSIST. DENIES ANY NEEDS AT THIS TIME.
[2020-09-17 00:53] VITALS: BP 140/80
[2020-09-17 05:35] VITALS: BP 165/84
--- NOTE | 2020-09-17 07:10 | NUR ---
RECEIVE SHIFT REPORT. RESTING IN BED WITH TV ON. DENIES ANY NEEDS AT THIS TIME. HARD OF HEARING. WOUND VAC TO LEFT UPPER ARM. CALL LIGHT IN REACH. WILL CONTINUE POC AND SAFETY PRECAUTIONS.
[2020-09-17 08:14] VITALS: BP 126/71
[2020-09-17 11:55] VITALS: BP 144/84
--- NOTE | 2020-09-17 16:28 | NUR ---
DOWN TO DIALYSIS BY BED.
--- NOTE | 2020-09-17 20:06 | NUR ---
PT RETURNED FROM DIALYSIS. WOUND VAC CHANGED TO PORTABLE PER ORDER. D/C PAPERWORK PROVIDED. ALL QUESTIONS ANSWERED. PT ESCORTED OUT VIA W/C TO PRIVATE VEHICLE.
--- NOTE | 2020-09-18 00:24 | MORECARE ---
CASE MANAGEMENT DISCHARGE SUMMARY PATIENT: PEYTON SHEPPARD UNIT: [id number] ADM DATE: 09/13/20 AGE: 75 : 44 SEX: M ROOM/BED: D.9629 AUTHOR: DONNA,DOC PHYSICIAN: REFERRING PHYSICIAN: SABINA PAUL MD DATE OF SERVICE: 09/18/20 Case Management Discharge Planning Summary COMMENTS ENTERED DATE: 09/18/20 0:17 CT COMMENT TYPE: Discharge Planning REVIEWER: Mandi López CM faxed signed form to [address] upon on delivery. [facility] will start services on Sat. Patient will start back to his regular clinic schedule MWF @ 0530 in [facility]. ENTERED DATE: 09/16/20 14:23 CT COMMENT TYPE: Discharge Planning REVIEWER: Anny Sinclair CM has received the approval for home wound vac from [facility]. I have not "placed/printed" the wound vac but it is ready when he is ready for discharge to get from [employer]. I met with patient to discuss discharge planning/needs. He does not want to go to rehab. He does consent to home health for wound vac changes. ANALIA for [facility] signed. He states he has gone to [facility] in the past, I explained to him that he cannot go to OP PT at the same time he has Home health, that if he needs PT, home health can do that as well. He dialyzes MWF at [facility] dialysis in [place] at 05:30. He sates his PCP is Dr. Yoni Reynoso in [place]. States he has a CPAP from [employer]. States he uses a cane or walker if needed. I have notified Ray with [facility] and clinical and order faxed. When medically ready for DC, he will go home with [facility] and home wound vac. DCP REVIEW SUMMARY ANTICIPATED D/C DATE: EXPECTED LOS : CASE STATUS: DCP Initiated INITIAL REVIEW: 09/16/2020 INITIAL REVIEWER: Anny Sinclair FINAL DISCHARGE DISPOSITION: : FINAL REVIEWER: FINAL REVIEW DATE: DCP Focus Questions & Answers DCP Evaluation QUESTION: ANSWER Family / Caregiver's ability to cope with chronic illness: : a. Adequate (ability to meet patient's medical needs, ensures patient attends medical appts.) Patient gives permission to discuss discharge plans with: (name, relationship and number) : Jasmyne Sheppard - spouse - [phone] Patient's ability to cope with chronic illness : d. No chronic illness Patient's current cognitive status: : *Oriented to person, place, situation, time and present Patient and/or caregiver agree upon recommended discharge plan? : Yes Physical Status: : Independent with ADL's Family / Caregiver's ability to cope with chronic illness: : a. Adequate (ability to meet patient's medical needs, ensures patient attends medical appts.) Does the patient have the ability to pay for or attain post discharge needs / services? : Yes Partial Dependence, assistance required for: : Ambulation / Mobility Living Arrangements: : Home with Spouse/Significant Other Equipment needed for post hospitalization: : Wound Vac Baseline cognitive status: : *Oriented to person, place, situation, time and present Results of this evaluation have been discussed with: : Patient Other Equipment comments: : Wound vac is ready in Physical environment modification needed / anticipated for discharge: : No Medication Management: : Patient states can afford medications Pharmacy name(s): : [facility] Planned post hospital services available for patient? : Yes Does Patient have transportation to get home and to follow-up medical appointments when discharged from the hospital? : Yes Planned post hospital services covered by insurance plan? : Yes Would patient like to participate in any Care Coordination programs (if applicable): : Not applicable Equipment in use: : Cane - Single Leg Equipment in use: : CPAP Equipment in use: : Walker - Rolling Mental health screen: : No mental health history Psychosocial status: : Adult with physical limitations Abuse/Neglect: : None Resources / Services in place: : Dialysis - facility hemodialysis - Contact information for resources in use: : [facility] in [place] MWF at 5:30 DCP Re-evaluation QUESTION: ANSWER Would patient like to participate in any Care Coordination programs (if applicable): : Not applicable PATIENT: PEYTON SHEPPARD ENCOUNTER: [id number] MEDICAL RECORD#: [id number] ADMISSION DATE: 09/13/2020 DISCHARGE DATE: 09/17/2020 ATTENDING MD: SABINA BEAVERS : AGE: 75 MARITAL STATUS: M DC PLAN ID: [id number] FACILITY: [facility] PRINTED ON: 09/18/20 0:24 CT All edits/amendments must be made on the electronic document DICTATION DATE: 09/18/2023 COMPUTER FORWARDING SYSTEM MARKUP CLERK: ELIZABETH 09/18/2023 RPT#: [id number] DC DATE:09/17/20 STATUS: DIS IN [facility] [address] [place] [address] END OF REPORT
--- NOTE | 2020-09-18 02:06 | MORECARE ---
CASE MANAGEMENT DISCHARGE SUMMARY PATIENT: PEYTON SHEPPARD UNIT: [id number] ADM DATE: 09/13/20 AGE: 75 : 44 SEX: M ROOM/BED: D.1280 AUTHOR: DONNA,DOC PHYSICIAN: REFERRING PHYSICIAN: SABINA PAUL MD DATE OF SERVICE: 09/18/20 Case Management Discharge Planning Summary COMMENTS ENTERED DATE: 09/18/20 0:17 CT COMMENT TYPE: Discharge Planning REVIEWER: Mandi López CM faxed signed form to [address] upon on delivery. [facility] will start services on Sat. Patient will start back to his regular clinic schedule MWF @ 0530 in [facility]. ENTERED DATE: 09/16/20 14:23 CT COMMENT TYPE: Discharge Planning REVIEWER: Anny Sinclair CM has received the approval for home wound vac from [facility]. I have not "placed/printed" the wound vac but it is ready when he is ready for discharge to get from [employer]. I met with patient to discuss discharge planning/needs. He does not want to go to rehab. He does consent to home health for wound vac changes. ANALIA for [facility] signed. He states he has gone to [facility] in the past, I explained to him that he cannot go to OP PT at the same time he has Home health, that if he needs PT, home health can do that as well. He dialyzes MWF at [facility] dialysis in [place] at 05:30. He sates his PCP is Dr. Yoni Reynoso in [place]. States he has a CPAP from [employer]. States he uses a cane or walker if needed. I have notified Ray with [facility] and clinical and order faxed. When medically ready for DC, he will go home with [facility] and home wound vac. DCP REVIEW SUMMARY ANTICIPATED D/C DATE: EXPECTED LOS : CASE STATUS: DCP Initiated INITIAL REVIEW: 09/16/2020 INITIAL REVIEWER: Anny Sinclair FINAL DISCHARGE DISPOSITION: : FINAL REVIEWER: FINAL REVIEW DATE: DCP Focus Questions & Answers DCP Evaluation QUESTION: ANSWER Patient's current cognitive status: : *Oriented to person, place, situation, time and present Patient's ability to cope with chronic illness : d. No chronic illness Patient gives permission to discuss discharge plans with: (name, relationship and number) : Jasmyne Sheppard - spouse - [phone] Patient and/or caregiver agree upon recommended discharge plan? : Yes Family / Caregiver's ability to cope with chronic illness: : a. Adequate (ability to meet patient's medical needs, ensures patient attends medical appts.) Physical Status: : Independent with ADL's Does the patient have the ability to pay for or attain post discharge needs / services? : Yes Family / Caregiver's ability to cope with chronic illness: : a. Adequate (ability to meet patient's medical needs, ensures patient attends medical appts.) Partial Dependence, assistance required for: : Ambulation / Mobility Equipment needed for post hospitalization: : Wound Vac Living Arrangements: : Home with Spouse/Significant Other Baseline cognitive status: : *Oriented to person, place, situation, time and present Results of this evaluation have been discussed with: : Patient Other Equipment comments: : Wound vac is ready in Physical environment modification needed / anticipated for discharge: : No Medication Management: : Patient states can afford medications Planned post hospital services available for patient? : Yes Pharmacy name(s): : [facility] in [place] Does Patient have transportation to get home and to follow-up medical appointments when discharged from the hospital? : Yes Planned post hospital services covered by insurance plan? : Yes Would patient like to participate in any Care Coordination programs (if applicable): : Not applicable Equipment in use: : Walker - Rolling Equipment in use: : CPAP Equipment in use: : Cane - Single Leg Mental health screen: : No mental health history Psychosocial status: : Adult with physical limitations Abuse/Neglect: : None Resources / Services in place: : Dialysis - facility hemodialysis - Contact information for resources in use: : [facility] in [place] at 5:30 DCP Re-evaluation QUESTION: ANSWER Would patient like to participate in any Care Coordination programs (if applicable): : Not applicable PATIENT: PEYTON SHEPPARD ENCOUNTER: [id number] MEDICAL RECORD#: [id number] ADMISSION DATE: 09/13/2020 DISCHARGE DATE: 09/17/2020 ATTENDING MD: SABINA BEAVERS : AGE: 75 MARITAL STATUS: M DC PLAN ID: [id number] FACILITY: [facility] PRINTED ON: 09/18/20 2:05 CT All edits/amendments must be made on the electronic document DICTATION DATE: 09/18/20204 PRECAST CONCRETE IRONWORKER: ELIZABETH 09/18/20204 RPT#: [id number] DC DATE:09/17/20 STATUS: DIS IN [facility] [address] [place] [address] END OF REPORT
--- NOTE | 2020-09-21 14:53 | MORECARE ---
CASE MANAGEMENT DISCHARGE SUMMARY PATIENT: PEYTON SHEPPARD UNIT: [id number] ADM DATE: 09/13/20 AGE: 75 : 44 SEX: M ROOM/BED: D.7889 AUTHOR: DONNA,DOC PHYSICIAN: REFERRING PHYSICIAN: SABINA PAUL MD DATE OF SERVICE: 09/21/20 Case Management Discharge Planning Summary COMMENTS ENTERED DATE: 09/18/20 0:17 CT COMMENT TYPE: Discharge Planning REVIEWER: Mandi López CM faxed signed form to [address] upon on delivery. [facility] will start services on Sat. Patient will start back to his regular clinic schedule MWF @ 0530 in [facility]. ENTERED DATE: 09/16/20 14:23 CT COMMENT TYPE: Discharge Planning REVIEWER: Anny Sinclair CM has received the approval for home wound vac from [facility]. I have not "placed/printed" the wound vac but it is ready when he is ready for discharge to get from [facility] [employer]. I met with patient to discuss discharge planning/needs. He does not want to go to rehab. He does consent to home health for wound vac changes. ANALIA for [facility] signed. He states he has gone to [facility] in the past, I explained to him that he cannot go to OP PT at the same time he has Home health, that if he needs PT, home health can do that as well. He dialyzes MWF at [facility] dialysis in [place] at 05:30. He sates his PCP is Dr. Yoni Reynoso in [place]. States he has a CPAP from [facility]. States he uses a cane or walker if needed. I have notified Ray with [facility] and clinical and order faxed. When medically ready for DC, he will go home with [facility] and home wound vac. DCP REVIEW SUMMARY ANTICIPATED D/C DATE: EXPECTED LOS : CASE STATUS: DCP Initiated INITIAL REVIEW: 09/16/2020 INITIAL REVIEWER: Anny Sinclair FINAL DISCHARGE DISPOSITION: : FINAL REVIEWER: FINAL REVIEW DATE: DCP Focus Questions & Answers DCP Evaluation QUESTION: ANSWER Patient and/or caregiver agree upon recommended discharge plan? : Yes Family / Caregiver's ability to cope with chronic illness: : a. Adequate (ability to meet patient's medical needs, ensures patient attends medical appts.) Patient's current cognitive status: : *Oriented to person, place, situation, time and present Patient's ability to cope with chronic illness : d. No chronic illness Patient gives permission to discuss discharge plans with: (name, relationship and number) : Jasmyne Sheppard - spouse - [phone] Does the patient have the ability to pay for or attain post discharge needs / services? : Yes Family / Caregiver's ability to cope with chronic illness: : a. Adequate (ability to meet patient's medical needs, ensures patient attends medical appts.) Physical Status: : Independent with ADL's Equipment needed for post hospitalization: : Wound Vac Living Arrangements: : Home with Spouse/Significant Other Partial Dependence, assistance required for: : Ambulation / Mobility Other Equipment comments: : Wound vac is ready in [facility] Results of this evaluation have been discussed with: : Patient Baseline cognitive status: : *Oriented to person, place, situation, time and present Physical environment modification needed / anticipated for discharge: : No Medication Management: : Patient states can afford medications Planned post hospital services available for patient? : Yes Pharmacy name(s): : [facility] Planned post hospital services covered by insurance plan? : Yes Does Patient have transportation to get home and to follow-up medical appointments when discharged from the hospital? : Yes Would patient like to participate in any Care Coordination programs (if applicable): : Not applicable Equipment in use: : Walker - Rolling Equipment in use: : CPAP Equipment in use: : Cane - Single Leg Mental health screen: : No mental health history Psychosocial status: : Adult with physical limitations Abuse/Neglect: : None Resources / Services in place: : Dialysis - facility hemodialysis Contact information for resources in use: : [facility] in [facility] at 5:30 DCP Re-evaluation QUESTION: ANSWER Would patient like to participate in any Care Coordination programs (if applicable): : Not applicable PATIENT: PEYTON SHEPPARD ENCOUNTER: [id number] MEDICAL RECORD#: [id number] ADMISSION DATE: 09/13/2020 DISCHARGE DATE: 09/17/2020 ATTENDING MD: SABINA BEAVERS : AGE: 75 MARITAL STATUS: M DC PLAN ID: [id number] FACILITY: [facility] PRINTED ON: 09/21/20 14:53 CT All edits/amendments must be made on the electronic document DICTATION DATE: 09/21/201452 PILL PACKER: ELIZABETH 09/21/201452 RPT#: [id number] DC DATE:09/17/20 STATUS: DIS IN [facility] [address] [place] [address] END OF REPORT
== END 2020-09-17 20:09 | disposition home health service (06) | DRG 252 ==
LOC: D.ER 09:31 → D.ICU 10:20 → D.M2 10:20 → D.ICU 15:11 → D.M2 09-14 13:48
PROVIDERS: Family Medicine; Surgery; ADMIT Internal Medicine Nephrology; ATTEND Internal Medicine Nephrology
PROC: 05LY0ZZ Occlusion of Upper Vein, Open Approach (ICD-10-PCS; principal; 2020-09-14 14:30)
PROC: 05HY33Z Insertion of Infusion Device into Upper Vein, Percutaneous Approach (ICD-10-PCS; 2020-09-14 14:30)
PROC: 5A1D70Z Performance of Urinary Filtration, Intermittent, Less than 6 Hours Per Day (ICD-10-PCS; 2020-09-17)
DX: T82.510A Breakdown (mechanical) of surgically created arteriovenous fistula, initial encounter (principal); N18.6 End stage renal disease; I12.0 Hypertensive chronic kidney disease with stage 5 chronic kidney disease or end stage renal disease; N39.0 Urinary tract infection, site not specified; E11.22 Type 2 diabetes mellitus with diabetic chronic kidney disease; Z99.2 Dependence on renal dialysis; Y83.9 Surgical procedure, unspecified as the cause of abnormal reaction of the patient, or of later complication, without mention of misadventure at the time of the procedure; T82.7XXA Infection and inflammatory reaction due to other cardiac and vascular devices, implants and grafts, initial encounter; N40.0 Benign prostatic hyperplasia without lower urinary tract symptoms; E78.5 Hyperlipidemia, unspecified

== ENCOUNTER 2020-09-18 05:28 | Observation (INO) | payer MEDICARE, OTHER ==
[~2020-09-18] VITALS: Ht 182.9 cm; Wt 119.5 kg
[~2020-09-18 05:28] MED LIST changes: +CLARITIN 10 MG10 MG PO; +LEVO-T50 MCG PO; +PACERONE200 MG PO; +VELPHORO500 MG PO
[2020-09-18 06:47] LABS: BASOPHILS 0.6 % (0-2); EOSINOPHILS 4.2 % (0-7); HEMATOCRIT 34.4 % (42.0-54.0); HEMOGLOBIN 11.3 g/dL (13.5-17.5); IMMATURE GRANULOCYTES 2.4 % (0-5); MCH 34.3 pg (26.0-34.0); MCHC 32.8 g/dL (31.0-37.0); MCV 104.6 fL (80.0-100.0); MEAN PLATELET VOLUME 9.6 fL (7.4-10.4); MONOCYTES 10.8 % (2-11); NEUTROPHIL ABS# 3.68 10x3/uL (1.78-5.38); PLATELET COUNT 104 10x3/uL (130-400); RBC 3.29 10x6/uL (4.20-6.10); RDW 13.3 % (11.5-14.5)
[2020-09-18 06:52] LABS: ANION GAP 18.1 mmol/L (8-16); CALCIUM 8.7 mg/dL (8.5-10.1); CREATININE - SERUM 9.8 mg/dL (0.6-1.3); POTASSIUM - SERUM 4.1 mmol/L (3.5-5.1)
[2020-09-18 06:56] LABS: ALBUMIN 2.8 g/dL (3.4-5.0); BILIRUBIN - TOTAL 0.42 mg/dL (0.2-1.3); MAGNESIUM - SERUM 2.3 mg/dL (1.8-2.4); PHOSPHOROUS 7.6 mg/dL (2.5-4.9); PROTEIN - SERUM 6.2 g/dL (6.4-8.2)
[2020-09-18 07:16] LABS: INR 1.25 (0.85-1.17); PROTIME 14.5 SECONDS (11.6-15.0)
[2020-09-18 07:30] VITALS: BP 138/83
--- NOTE | 2020-09-18 07:30 | NUR ---
DR ANN AT . [facility] REMOVED AND DRY [facility]/URSZULA WRAP REAPPLIED PER MD. NO BLEEDING AT THIS TIME
--- NOTE | 2020-09-18 09:23 | NUR ---
DIALYSIS NURSE CALLED AND PT TAKEN TO DIALYSIS VIA W/C. CONDITION STABLE
--- NOTE | 2020-09-18 10:00 | NUR ---
REPORT TO RUSTY CASEY
--- NOTE | 2020-09-18 10:05 | NUR ---
CALLED [facility] N[facility]SE. INFORMED PT ASSSIGNED OT ROOM # 6221. SHE WILL TRANSPORT PT TO ROOM AFTER DIALYSIS
[2020-09-18 14:06] VITALS: BP 149/79; Ht 182.9 cm; Wt 119.5 kg
--- NOTE | 2020-09-18 14:18 | NUR ---
PT RECIEVED FROM DIALYSIS. IM ABX GIVEN AND NORCO IN PREPARATION FOR WOUND VAC CHANGE. PT TO BE DISCHARGED AFTER ABX AND WOUND VAC CHANGE. DC PAPERWORK IN PROGRESS. ARRIVED AND REPORTED WOUND VAC WAS TO BE CHANGED TOMORROW. NEPHROLOGY INFORMED. WOUND VAC CHANGE NO LONGER NEEDED. WILL DISCHARGE WHEN PAPERWORK IS COMPLETE.
--- NOTE | 2020-09-18 15:12 | NUR ---
DISCHARGE INSTRUCTIONS PROVIDED TO PATIENT AND . VERBALIZED UNDERSTANDING. DC OUT VIA WHEELCHAIR.
[2020-09-18 15:26] VITALS: BP 136/85
== END 2020-09-18 15:51 | disposition home or self-care (01) ==
LOC: D.ER 05:28 → OBSVTIME 09:21 → D.M2 09:21
PROVIDERS: Family Medicine; ADMIT Internal Medicine Nephrology; ATTEND Internal Medicine Nephrology
DX: T82.838A Hemorrhage due to vascular prosthetic devices, implants and grafts, initial encounter (principal); E11.22 Type 2 diabetes mellitus with diabetic chronic kidney disease; N18.6 End stage renal disease; D63.1 Anemia in chronic kidney disease; E03.9 Hypothyroidism, unspecified; E83.39 Other disorders of phosphorus metabolism; E78.5 Hyperlipidemia, unspecified; I25.10 Atherosclerotic heart disease of native coronary artery without angina pectoris; Z99.2 Dependence on renal dialysis

== ENCOUNTER 2020-09-21 16:53 | Inpatient (IN) | payer MEDICARE, OTHER ==
[~2020-09-21] VITALS: Ht 182.9 cm; Wt 58.0 kg
--- NOTE | 2020-09-21 17:05 | NUR ---
ACTIVE BLEEDING FROM WOUND VAC SITE AT LEFT UPPER ARM. ABD PADS AND URSZULA WRAP FOR COMPRESSION.
--- NOTE | 2020-09-21 17:30 | NUR ---
BLEEDING CONTROLLED AT THIS TIME.
[2020-09-21 17:56] LABS: BASOPHILS 1.2 % (0-2); EOSINOPHILS 4.1 % (0-7); HEMATOCRIT 36.3 % (42.0-54.0); IMMATURE GRANULOCYTES 2.9 % (0-5); LYMPHOCYTE ABS# 0.79 10x3/uL (1.32-3.57); LYMPHOCYTES 15.4 % (15-50); MCH 34.5 pg (26.0-34.0); MCHC 33.1 g/dL (31.0-37.0); MCV 104.3 fL (80.0-100.0); MEAN PLATELET VOLUME 10.2 fL (7.4-10.4); MONOCYTES 10.1 % (2-11); NEUTROPHILS 66.3 % (40-80); RBC 3.48 10x6/uL (4.20-6.10); RDW 13.4 % (11.5-14.5); WBC 5.1 10x3/uL (4.8-10.8)
[2020-09-21 18:01] LABS: PLATELET COUNT 142 10x3/uL (130-400)
[2020-09-21 18:03] LABS: ANION GAP 17.2 mmol/L (8-16); CARBON DIOXIDE 25.7 mmol/L (21.0-32.0); CREATININE - SERUM 7.4 mg/dL (0.6-1.3); POTASSIUM - SERUM 3.9 mmol/L (3.5-5.1)
[2020-09-21] MEDS ORDERED: BAYER CHEWABLE81 MG PO (19:23)
--- NOTE | 2020-09-21 21:00 | NUR ---
REPORT RECEIVED, PT A&O, MOMENTS OF CONFUSION, EASILY REORIENTED. NO S/S OF DISTRESS OBSERVED. RR EVEN & UNLABORED ON RA. IV TO R AC PATENT, SL, SWAB CAPS IN USE. DRESSING TO L UPPER ARM FISTULA C/D/I. DRESSING TO L FOREARM DOG SCRATH C/D/I. SR 68 ON TELE. BED LOCKED AND LOWERED, CL IN REACH. ASSESSMENT COMPLETE. WILL CONT POC.
--- NOTE | 2020-09-21 23:51 | NUR ---
UPON ADMISSION, PTS DRESSING TO LEFT UPPER ARM FISTULA D/C/I. PT HAS NOW HEMORRHAGED THROUGH THE PRESSURE DRESSING THAT WAS APPLIED IN ER. PAGED DR. GUILLORY. AWAITING CALL BACK. REAPPLIED ABD PADS AND PRESSURE TAPE TO SITE. L RADIAL PULSE PRESENT.
[2020-09-22] VITALS (7 sets, daily range): BP systolic 121–163; BP diastolic 54–83; Ht 182.9 cm; Wt 58.0 kg
[2020-09-22 06:47] LABS: INR 1.21 (0.85-1.17); PROTIME 14.2 SECONDS (11.6-15.0)
[2020-09-22 06:48] LABS: BASOPHILS 1.1 % (0-2); EOSINOPHILS 3.8 % (0-7); HEMATOCRIT 32.3 % (42.0-54.0); HEMOGLOBIN 10.7 g/dL (13.5-17.5); IMMATURE GRANULOCYTES 1.9 % (0-5); LYMPHOCYTE ABS# 0.75 10x3/uL (1.32-3.57); LYMPHOCYTES 15.8 % (15-50); MCH 34.3 pg (26.0-34.0); MCHC 33.1 g/dL (31.0-37.0); MCV 103.5 fL (80.0-100.0); MEAN PLATELET VOLUME 9.4 fL (7.4-10.4); MONOCYTES 14.1 % (2-11); NEUTROPHILS 63.3 % (40-80); RBC 3.12 10x6/uL (4.20-6.10); RDW 13.5 % (11.5-14.5); WBC 4.7 10x3/uL (4.8-10.8)
[2020-09-22 06:49] LABS: PLATELET COUNT 111 10x3/uL (130-400)
[2020-09-22 06:57] LABS: ANION GAP 15.7 mmol/L (8-16); CALCIUM 9.2 mg/dL (8.5-10.1); CARBON DIOXIDE 23.4 mmol/L (21.0-32.0); CREATININE - SERUM 8.4 mg/dL (0.6-1.3); POTASSIUM - SERUM 4.1 mmol/L (3.5-5.1)
--- NOTE | 2020-09-22 07:20 | NUR ---
RECIEVE REPORT. ALERT AND ORIENTED X4. LT ARM PRESSURE DRESSING INTACT. OF POST SURGERY SITE BLEEDING. SPOUSE AT BEDSIDE. DENIES ANY NEEDS. CONTINUE PLAN OF CARE AND SAFETY PRECAUTIONS.
--- NOTE | 2020-09-22 12:47 | NUR ---
CALL SURGERY INQUIRING PLAN PER PATIENT REQUEST. IN PROCEDURE AT THIS TIME.
--- NOTE | 2020-09-22 16:05 | NUR ---
TO OR VIA BED.PRE OP MEDS OF PEPCID AND REGLAN GIVEN.
--- NOTE | 2020-09-22 17:35 | NUR ---
ARRIVE BACK TO ROOM VIA BED FROM PROCEDURE. SEDATED. AROUSES TO STIMULI. LT ARM WOUND VAC INTACT. FREE FROM LEAKS. BP-152/67, HR-74, O2-97% RA. LT ARM ELEVATED UP ON PILLOW. CONTINUE PLAN OF CARE AND SAFETY PRECAUTIONS.
--- NOTE | 2020-09-22 21:25 | NUR ---
REPORT RECEIVED. PT A&O, UP IN BED WATCHING TV. NO S/S OF DISTRESS OBSERVED. RR EVEN & UNLABORED ON RA. IV TO R AC SL, PATENT, SWAB CAPS IN USE. R GROIN H/S IN PLACE. FISTULA DRESSING AND WOUND VAC IN PLACE ON L UPPER ARM. DRESSING TO L FA IN PLACE. NO ACTIVE HEMORRHAGING OBSERVED. ASSISTED PT WITH APPLYING CPAP. PACED AT 69 ON TELE. BED LOCKED AND LOWERED, CL IN REACH. ASSESSMENT COMPLETE. WILL CONT POC.
[2020-09-23 03:05] VITALS: BP 90/37
[2020-09-23 05:57] VITALS: BP 154/55
--- NOTE | 2020-09-23 07:40 | NUR ---
REPORT RECEIVED. PATIENT IS AAOX4, SITTING UP IN BED. NO S/S OF DISTRESS OBSERVED. RR EVEN AND UNLABORED ON ROOM AIR. PIV TO RT AC, SL. RT GROIN HEMOSPLIT, DRSG C/D/I. WOUND VAC TO LT UPPER ARM, WORKING PROPERLY. PATIENT DENIES FURTHER NEEDS AT THIS TIME. CL IN REACH, BED LOCKED AND LOWERED. WILL CPOC.
[2020-09-23 08:06] VITALS: BP 130/52
--- NOTE | 2020-09-23 08:08 | MORECARE ---
CASE MANAGEMENT DISCHARGE SUMMARY PATIENT: PEYTON SHEPPARD UNIT: [id number] ADM DATE: 09/22/20 AGE: 75 : 44 SEX: M ROOM/BED: D.[facility]6 AUTHOR: DONNADOC PHYSICIAN: REFERRING PHYSICIAN: JAQUELINE GUILLORY DO DATE OF SERVICE: 09/23/20 Case Management Discharge Planning Summary DCP REVIEW SUMMARY ANTICIPATED D/C DATE: EXPECTED LOS : CASE STATUS: DCP Initiated INITIAL REVIEW: 09/21/2020 INITIAL REVIEWER: Anny Sinclair FINAL DISCHARGE DISPOSITION: : FINAL REVIEWER: FINAL REVIEW DATE: DCP Focus Questions & Answers QUESTION: ANSWER : PATIENT: PEYTON SHEPPARD ENCOUNTER: [id number] MEDICAL RECORD#: [id number] ADMISSION DATE: 09/22/2020 DISCHARGE DATE: ATTENDING MD: FRANTZ: AGE: 75 MARITAL STATUS: M DC PLAN ID: [id number] FACILITY: [facility] PRINTED ON: 09/23/20 8:08 CT All edits/amendments must be made on the electronic document DICTATION DATE: 09/23/20807 SHAKER TENDER: DM 09/23/20807 RPT#: [id number] DC DATE: STATUS: ADM IN [facility] [address] [place] [address] END OF REPORT
--- NOTE | 2020-09-23 08:19 | MORECARE ---
CASE MANAGEMENT DISCHARGE SUMMARY PATIENT: PEYTON SHEPPARD UNIT: [id number] ADM DATE: 09/22/20 AGE: 75 : 44 SEX: M ROOM/BED: D.2116 AUTHOR: DONNA,DOC PHYSICIAN: REFERRING PHYSICIAN: JAQUELINE GUILLORY DO DATE OF SERVICE: 09/23/20 Case Management Discharge Planning Summary COMMENTS ENTERED DATE: 09/23/20 8:08 CT COMMENT TYPE: Discharge Planning REVIEWER: Anny Sinclair CM received order to continue wound vac changes on Monday for HHS with possible discharge Monday. I have notified Ray with [employer] [facility] and faxed updated clinical including operative report with possible change in the order for dressing change materials. [employer] [facility] will save a spot for a Monday visit. DCP REVIEW SUMMARY ANTICIPATED D/C DATE: EXPECTED LOS : CASE STATUS: DCP Initiated INITIAL REVIEW: 09/21/2020 INITIAL REVIEWER: Anny Sinclair FINAL DISCHARGE DISPOSITION: : FINAL REVIEWER: FINAL REVIEW DATE: CAP Focus Questions & Answers QUESTION: ANSWER : PATIENT: PEYTON SHEPPARD ENCOUNTER: [id number] MEDICAL RECORD#: [id number] ADMISSION DATE: 09/22/2020 DISCHARGE DATE: ATTENDING MD: : AGE: 75 MARITAL STATUS: M DC PLAN ID: [id number] FACILITY: [facility] PRINTED ON: 09/23/20 8:19 CT All edits/amendments must be made on the electronic document DICTATION DATE: 09/23/20818 UNIT AIDE: DM 09/23/20818 RPT#: [id number] DC DATE: STATUS: ADM IN [facility] [address] [place] [address] END OF REPORT
[2020-09-23 12:07] VITALS: BP 151/66
--- NOTE | 2020-09-23 17:47 | OP ---
PATIENT NAME: PEYTON SHEPPARD MEDICAL RECORD: [id number] :43 LOCATION:D. D.2115 ADMISSION DATE:09/22/20 SURGEON: CHANDNI STANTON MD DATE OF OPERATION: 09/22/2020 REFERRED BY: Dr. Guillory PREOPERATIVE DIAGNOSIS: Postop coagulopathic wound bleeding from left arm wound. POSTOPERATIVE DIAGNOSIS: Postop coagulopathic wound bleeding from left arm wound. OPERATION PERFORMED: Wound VAC dressing change and examination of wound with irrigation and cleansing and then reapplication of the new wound VAC dressing. SURGEON: Chandni Stanton MD ANESTHESIA: General with LMA per DIRECTOR STRATEGIC ACCOUNT MANAGEMENT and Dr. Aragon. PREOPERATIVE NOTE: Mr. 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 He had to return to the Emergency Room yesterday after home health had changed his dressing when he had persistent oozing of a considerable amount of blood. Today, I do not believe that he has any ongoing arterial bleeding or bleeding from the fistula itself, which was ligated when I operated on him last, but he does need to have a dressing change and the wound carefully inspected and I will do that in the operating room. Under anesthesia in supine position, the patient was prepped and draped in a sterile manner. The wound VAC dressing was removed. The wound was irrigated with saline and clot removed. There was no active bleeding other than a slow generalized coagulopathic type oozing from the granulation tissue and also from numerous skin tears, which he had on his forearm. The wound was redressed first with application of Cavilon to the surrounding intact skin and then application of an Adaptic gauze to cover the granulation tissue. Then, a mckinney sponge and standard adhesive plastic dressings were applied and the dressing then attached to continuous negative 125 mmHg suction. The areas of skin tear were cleansed and then carefully dressed with fibrillar to enhance coagulation and Tegaderm adherent plastic dressings. The patient was awakened and in stable condition returned to the recovery room. There, I have requested that he receive 20 units of DDAVP intravenously to hopefully help to reverse his coagulopathy. I believe the patient should stay in the hospital until the first dressing change on Monday. If possible, I will be there myself to look at the wound. I hope that he can go home with home health doing wound VAC changes, although we may need to modify the orders because of his fragility, perhaps continuing the use of Adaptic or even changing to white foam. Wound VAC should hopefully result in much earlier wound closure than we might get otherwise. TRANSINT:[id number] Voice Confirmation ID: [id number] DOCUMENT ID: [id number] OPERATIVE REPORT [id number] PEYTON SHEPPARD, CHANDNI MAYO at 1747 CC: JAQUELINE GUILLORY DO [id number] DICTATION DATE: 09/22/201719 APPLIED PSYCHOLOGY TEACHER: 09/23/20 0016 ADM IN [facility] [address] [place] [id number]
--- NOTE | 2020-09-23 18:00 | NUR ---
PATIENT BACK IN ROOM FROM DIALYSIS. 1.5L OFF REPORTED.
--- NOTE | 2020-09-23 19:11 | NUR ---
RECIEVED UP IN BED WITH EYES OPEN AND TV ON. ALERT AND ORIENTED X4. DENIES ANY NEEDS AT THIS TIME.
[2020-09-23 21:36] VITALS: BP 109/53
[2020-09-24 01:37] VITALS: BP 132/100
[2020-09-24 04:30] VITALS: BP 168/59
[2020-09-24 05:53] VITALS: BP 145/76
[2020-09-24 06:23] LABS: BASOPHILS 1.1 % (0-2); HEMATOCRIT 29.3 % (42.0-54.0); HEMOGLOBIN 9.7 g/dL (13.5-17.5); IMMATURE GRANULOCYTES 1.4 % (0-5); LYMPHOCYTE ABS# 0.67 10x3/uL (1.32-3.57); LYMPHOCYTES 15.2 % (15-50); MCH 34.4 pg (26.0-34.0); MCHC 33.1 g/dL (31.0-37.0); MCV 103.9 fL (80.0-100.0); MEAN PLATELET VOLUME 9.8 fL (7.4-10.4); MONOCYTES 13.2 % (2-11); NEUTROPHIL ABS# 2.91 10x3/uL (1.78-5.38); NEUTROPHILS 66.1 % (40-80); PLATELET COUNT 123 10x3/uL (130-400); RBC 2.82 10x6/uL (4.20-6.10); RDW 13.4 % (11.5-14.5); WBC 4.4 10x3/uL (4.8-10.8)
[2020-09-24 06:35] LABS: ANION GAP 17.3 mmol/L (8-16); CALCIUM 8.9 mg/dL (8.5-10.1); CARBON DIOXIDE 24.1 mmol/L (21.0-32.0); CREATININE - SERUM 7.4 mg/dL (0.6-1.3); POTASSIUM - SERUM 4.4 mmol/L (3.5-5.1)
[2020-09-24 08:00] VITALS: BP 129/69
--- NOTE | 2020-09-24 11:52 | NUR ---
Nutrition Reassessment/Follow-up: S/p wound vac dressing change (09/22). Good appetite/PO intake. Denies N/V/C/D. HD yesterday (-1.5 L). Pt reports plans to d/c soon. Diet: Renal ADA PO intake: 100% x 3 yesterday No new wt; last wt: 253# (09/22) Last BM: 09/23 Labs noted: K+ 4.4, Glu 95 Meds noted: Miralax, Floranex, Lasix, Colace, Calcitriol Nutrition Goals: -PO intake >=75% avg meal intake. -Stable dry wt. -Glu at or near normal. Nutrition Intervention: -Nutrition needs unchanged since initial assessment; no new wt available. -Continue current diet as tolerated. -Monitor Glu. -RD will follow up within 7 days if pt still admitted.
[2020-09-24 12:00] VITALS: BP 119/62
--- NOTE | 2020-09-24 19:53 | NUR ---
RECIEVED LAYING IN BED WITH EYES CLOSED. EASILY AROUSED WITH VERBAL STIMULI. ORIENTED X4. UP AD BRIAN. DENIES ANY NEEDS AT THIS TIME.
[2020-09-24 20:39] VITALS: BP 137/74
[2020-09-25 05:07] VITALS: BP 142/85
[2020-09-25 08:13] VITALS: BP 135/78
--- NOTE | 2020-09-25 09:06 | NUR ---
LEAVING FOR DIALYSIS BY BED. WILL CONT. PLAN OF CARE.
--- NOTE | 2020-09-25 13:12 | NUR ---
BACK FROM DIALYSIS. ACCESS NOT WORKING. DR. STANTON NOTIFIED BY [employer] REP. TO CHANGE W/V DRSG WHEN HE COMES TO ASSES HEMASPLIT.
--- NOTE | 2020-09-25 16:22 | NUR ---
WOUND VAC DRSG CHANGED WITH PHYSICIAN AT BS.
[2020-09-25 16:39] VITALS: BP 142/76
--- NOTE | 2020-09-25 18:31 | NUR ---
INITIAL ATTEMPT AT DIALYSIS UNSUCCESSFUL. PATIENT'S ACCESS NON-FUNCTIONING, WILL NOT DRAW BLOOD FROM ARTERIAL PORT OF CATHETER AND VENOUS SIDE DRAWS VERY SLUGGISHLY HOWEVER TOO MUCH RESISTANCE TO RUN TREATMENT. DR. GUILLORY NOTIFIED, NEW ORDERS FOR ACTIVASE 2MG PER CATHETER PORT TO DWELL FOR 30-60 MINUTES. AFTER 60 MINUTE DWELL, ABLE TO DRAW BLOOD FROM BOTH PORTS HOWEVER GREAT AMOUNT OF RESISTANCE ON EACH PORT WELL FLUSH. ATTEMPTED TREATMENT FOR SECOND TIME. ONLY ABLE TO RUN TREATMENT FOR APPROXIMATELY 30 MINUTES AT A BLOOD FLOW RATE OF 200 UNTIL TREATMENT WOULD NOT RUN AT ALL DESPITE MULTIPLE ATTEMTPTS TO POWER FLUSH, ETC/ DR. GUILLORY NOTIFIED AND TREATMENT ENDED EARLY. ACTIVASE 2 MG EACH CATH PORT INSTILLED FOR SECOND TIME AND PORTS COVERED WITH GAUZE AND TAPED FOR SAFETY. LABELED DO NOT USE ACTIVASE DWELL. ALSO NOTED THAT DRESSING TO HD CATH NOT INTACT. DRESSING CHANGED USING STERILE TECHNIQUE. INSERTION SITE WITH REDNESS, NO DRAINAGE. LARGE AMOUNTS OF DRIED BLOODY DRAINAGE NOTED TO OLD DRESSING. AREA CLEANED THOROUGHLY AND NEW DRESSING APPLIED. REPORT GIVEN TO CARMEN RAMIREZ RN.
--- NOTE | 2020-09-25 19:43 | NUR ---
RECEIVED REPORT, WILL ASSUME CARE OF PT, HEMOSPLIT TO R. [id number], WOUND VAC TO L.UPPER ARM, DENIES ANY NEEDS AT THIS TIME, BED IS LOW, SRX2, CALL LIGHT IN REACH, WILL CONTINUE PLAN OF CARE
--- NOTE | 2020-09-25 20:37 | MORECARE ---
CASE MANAGEMENT DISCHARGE SUMMARY PATIENT: PEYTON SHEPPARD UNIT: [id number] ADM DATE: 09/22/20 AGE: 75 : 44 SEX: M ROOM/BED: D.2115 AUTHOR: DONNA,DOC PHYSICIAN: REFERRING PHYSICIAN: JAQUELINE GUILLORY DO DATE OF SERVICE: 09/25/20 Case Management Discharge Planning Summary COMMENTS ENTERED DATE: 09/23/20 8:08 CT COMMENT TYPE: Discharge Planning REVIEWER: Anny Sinclair received order to continue wound vac changes on Monday for HHS with possible discharge Monday. I have notified Ray with [employer] [facility] and faxed updated clinical including operative report with possible change in the order for dressing change materials. [facility] will save a spot for a Monday visit. DCP REVIEW SUMMARY ANTICIPATED D/C DATE: EXPECTED LOS : CASE STATUS: DCP Initiated INITIAL REVIEW: 09/21/2020 INITIAL REVIEWER: Anny Sinclair FINAL DISCHARGE DISPOSITION: : FINAL REVIEWER: FINAL REVIEW DATE: NDP Focus Questions & Answers QUESTION: ANSWER : PATIENT: PEYTON SHEPPARD ENCOUNTER: [id number] MEDICAL RECORD#: [id number] ADMISSION DATE: 09/22/2020 DISCHARGE DATE: ATTENDING MD: : AGE: 75 MARITAL STATUS: M DC PLAN ID: [id number] FACILITY: [facility] PRINTED ON: 09/25/20 20:36 CT All edits/amendments must be made on the electronic document DICTATION DATE: 09/25/202035 PHOTOGRAPHY MANAGER: ELIZABETH 09/25/202035 RPT#: [id number] DC DATE: STATUS: ADM IN [facility] [address] [place] [address] END OF REPORT
--- NOTE | 2020-09-25 20:50 | NUR ---
PROVIDED PM MEDS, WITH ICEWATER. [facility] PROVIDED [facility] REQUESTED
[2020-09-25 21:13] VITALS: BP 122/67
[2020-09-26 00:17] VITALS: BP 137/47
--- NOTE | 2020-09-26 08:15 | NUR ---
PT TO SURGERY VIA BED.
--- NOTE | 2020-09-26 09:39 | NUR ---
PT BACK TO ROOM FROM SURGERY. HEMOSPLIT TO RIGHT THIGH, DSG CDI. WOUND VAC TO LEFT ARM IN PLACE. PT ASKING ABOUT WHEN DIALYSIS SO CAN GO HOME AFTER.
--- NOTE | 2020-09-26 11:19 | NUR ---
PT TO DIALYSIS VIA BED.
[2020-09-26] MEDS ORDERED: FEXOFENADINE HC60 MG PO (13:44)
--- NOTE | 2020-09-26 15:47 | NUR ---
PROVIDED VERBAL AND WRITTEN DISCHARGE TEACHING TO PT AND PT'S , BOTH VERBALIZED UNDERSTANDING REGARDING TEACHING. D/C RT HAND IV WITH CATHETER TIP INTACT. HEART MONITOR REMOVED AND TAKEN TO LOSS CONTROL TECHNICIAN, PT WILL CALL WHEN READY FOR WHEELCHAIR.
--- NOTE | 2020-09-26 16:12 | NUR ---
PT LEFT VIA WHEEL CHAIR WITH ALL BELONGINGS. ACCOMPANIED BY SPOUSE.
--- NOTE | 2020-09-26 18:45 | MORECARE ---
CASE MANAGEMENT DISCHARGE SUMMARY PATIENT: PEYTON SHEPPARD UNIT: [id number] ADM DATE: 09/22/20 AGE: 75 : 44 SEX: M ROOM/BED: D.371 AUTHOR: DONNA,DOC PHYSICIAN: REFERRING PHYSICIAN: JAQUELINE GUILLORY DO DATE OF SERVICE: 09/26/20 Case Management Discharge Planning Summary COMMENTS ENTERED DATE: 09/26/20 18:36 CT COMMENT TYPE: Discharge Planning REVIEWER: Mandi López CM MET WITH PATIENT AND HE PLANS TO RESUME WITH [employer] [facility] AND D/C IMM SIGNED. CM CALLED [employer] [facility] CALL CENTER AND NOTIFIED OF D/C TODAY AND RESUMPTION OF CARE ENTERED DATE: 09/23/20 8:08 CT COMMENT TYPE: Discharge Planning REVIEWER: Anny Sinclair CM received order to continue wound vac changes on Monday for [facility] with possible discharge Monday. I have notified Ray with [employer] [facility] and faxed updated clinical including operative report with possible change in the order for dressing change materials. [employer] [facility] will save a spot for a Monday visit. NEP REVIEW SUMMARY ANTICIPATED D/C DATE: EXPECTED LOS : CASE STATUS: DCP Initiated INITIAL REVIEW: 09/21/2020 INITIAL REVIEWER: Anny Sinclair FINAL DISCHARGE DISPOSITION: : FINAL REVIEWER: FINAL REVIEW DATE: NEP Focus Questions & Answers QUESTION: ANSWER : PATIENT: PEYTON SHEPPARD ENCOUNTER: [id number] MEDICAL RECORD#: [id number] ADMISSION DATE: 09/22/2020 DISCHARGE DATE: 09/26/2020 ATTENDING MD: : AGE: 75 MARITAL STATUS: M DC PLAN ID: [id number] FACILITY: [facility] PRINTED ON: 09/26/20 18:45 CT All edits/amendments must be made on the electronic document DICTATION DATE: 09/26/201844 FREIGHT AND PASSENGER AGENT: ELIZABETH 09/26/201844 RPT#: [id number] DC DATE:09/26/20 STATUS: DIS IN [facility] [address] [place] [address] END OF REPORT
--- NOTE | 2020-09-27 16:40 | MORECARE ---
CASE MANAGEMENT DISCHARGE SUMMARY PATIENT: PEYTON SHEPPARD UNIT: [id number] ADM DATE: 09/22/20 AGE: 75 : 44 SEX: M ROOM/BED: D.558 AUTHOR: DONNA,DOC PHYSICIAN: REFERRING PHYSICIAN: JAQUELINE GUILLORY DO DATE OF SERVICE: 09/27/20 Case Management Discharge Planning Summary COMMENTS ENTERED DATE: 09/26/20 18:36 CT COMMENT TYPE: Discharge Planning REVIEWER: Mandi López CM MET WITH PATIENT AND HE PLANS TO RESUME WITH [employer] [facility] AND D/C IMM SIGNED. CM CALLED [employer] [facility] CALL [facility] AND NOTIFIED OF D/C TODAY AND RESUMPTION OF CARE ENTERED DATE: 09/23/20 8:08 CT COMMENT TYPE: Discharge Planning REVIEWER: Anny Sinclair CM received order to continue wound vac changes on Monday for [facility] with possible discharge Monday. I have notified Ray with [employer] [facility] and faxed updated clinical including operative report with possible change in the order for dressing change materials. [employer] [facility] will save a spot for a Monday visit. WIP REVIEW SUMMARY ANTICIPATED D/C DATE: EXPECTED LOS : CASE STATUS: DCP Initiated INITIAL REVIEW: 09/21/2020 INITIAL REVIEWER: Anny Sinclair FINAL DISCHARGE DISPOSITION: : FINAL REVIEWER: FINAL REVIEW DATE: WIP Focus Questions & Answers QUESTION: ANSWER : PATIENT: PEYTON SHEPPARD ENCOUNTER: [id number] MEDICAL RECORD#: [id number] ADMISSION DATE: 09/22/2020 DISCHARGE DATE: 09/26/2020 ATTENDING MD: : AGE: 75 MARITAL STATUS: M DC PLAN ID: [id number] FACILITY: [facility] PRINTED ON: 09/27/20 16:39 CT All edits/amendments must be made on the electronic document DICTATION DATE: 09/27/201638 PROPOSITION PLAYER: ELIZABETH 09/27/201638 RPT#: [id number] DC DATE:09/26/20 STATUS: DIS IN [facility] [address] [place] [address] END OF REPORT
--- NOTE | 2020-09-28 14:47 | OP ---
PATIENT NAME: PEYTON SHEPPARD MEDICAL RECORD: [id number] :43 LOCATION:D. D.2116 ADMISSION DATE:09/22/20 SURGEON: CHANDNI STANTON MD DATE OF OPERATION: 09/26/2020 PREOPERATIVE DIAGNOSIS: Nonfunctional right femoral tunneled dialysis catheter. POSTOPERATIVE DIAGNOSIS: Nonfunctional right femoral tunneled dialysis catheter. ADDITIONAL DIAGNOSES: End-stage renal disease and dependence on hemodialysis. OPERATION PERFORMED: Exchange of right common femoral hemodialysis tunneled HemoSplit catheter under fluoroscopy. ANESTHESIA: General with LMA per PROGRAM/MUSIC DIRECTOR PREOPERATIVE NOTE: This 75-year-old white male patient with end-stage renal disease, is presently dialyzing with a right groin femoral vein HemoSplit catheter. It is thrombosed and is to be exchanged today, so that the patient may be able to be discharged after dialysis. 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 At that time, I placed the right HemoSplit catheter in his right femoral vein due to known obstruction of bilateral internal jugular veins. My hope is to be able to get the patient's left arm wound closed initially with the use of wound VAC dressing changes and get him back to the operating room to implant a prosthetic graft in the left arm, so that he can resume dialysis without the need of a catheter. He was brought to the operating room at this time to exchange his HemoSplit. I plan to insert a longer one this time. DESCRIPTION OF PROCEDURE: Under anesthesia in supine position, the patient was prepped and draped in sterile manner. A 0.035 Glidewire was inserted through the existing HemoSplit and under fluoroscopy the HemoSplit catheter was removed. The distal 3 inches was sent for culture and a new longer that was a 42 cm HemoSplit catheter was inserted over the guidewire and its tip reaching well up into the inferior vena cava without any complication per fluoroscopy. The patient's original catheter had no fibrous fixation to the subcutaneous cuff. The new catheter was advanced into the subcutaneous tunnel to bury the new cuff deeply. The new catheter was sutured to the skin near the entry site with 2-0 Prolene and both lumens aspirated and returned blood easily. The lumens were then flushed with saline and lastly heparin-locked, clamped and capped. A standard Biopatch CVL dressing was applied. The patient has numerous skin tears on his left forearm, which have been a site of oozing and bleeding. These were recently dressed in the operating room with Tegaderm and fibrillar and they were redressed again today this time with fibrillar and Maxorb. These dressings will need to be changed on a p.r.n. as needed basis at home after his discharge. TRANSINT:[id number] Voice Confirmation ID: [id number] DOCUMENT ID: [id number] OPERATIVE REPORT [id number] PEYTON SHEPPARD JAMES MD at 1447 CC: JAQUELINE GUILLORY DO [id number] DICTATION DATE: 09/26/20928 HOME HEALTH SCHEDULER: 09/26/20 1002 DIS IN 09/26/20 [facility] [address] [place] [address]
--- NOTE | 2020-09-28 15:52 | MORECARE ---
CASE MANAGEMENT DISCHARGE SUMMARY PATIENT: PEYTON SHEPPARD UNIT: [id number] ADM DATE: 09/22/20 AGE: 75 : 44 SEX: M ROOM/BED: D.933 AUTHOR: DONNA,DOC PHYSICIAN: REFERRING PHYSICIAN: JAQUELINE GUILLORY DO DATE OF SERVICE: 09/28/20 Case Management Discharge Planning Summary COMMENTS ENTERED DATE: 09/26/20 18:36 CT COMMENT TYPE: Discharge Planning REVIEWER: Mandi López CM MET WITH PATIENT AND HE PLANS TO RESUME WITH [employer] [facility] AND D/C IMM SIGNED. CM CALLED [employer] [facility] CALL CENTER AND NOTIFIED OF D/C TODAY AND RESUMPTION OF CARE ENTERED DATE: 09/23/20 8:08 CT COMMENT TYPE: Discharge Planning REVIEWER: Anny Sinclair CM received order to continue wound vac changes on Monday for [facility] with possible discharge Monday. I have notified Ray with [employer] [facility] and faxed updated clinical including operative report with possible change in the order for dressing change materials. [employer] [facility] will save a spot for a Monday visit. ALP REVIEW SUMMARY ANTICIPATED D/C DATE: EXPECTED LOS : CASE STATUS: DCP Initiated INITIAL REVIEW: 09/21/2020 INITIAL REVIEWER: Anny Sinclair FINAL DISCHARGE DISPOSITION: : FINAL REVIEWER: FINAL REVIEW DATE: ALP Focus Questions & Answers QUESTION: ANSWER : PATIENT: PEYTON SHEPPARD ENCOUNTER: [id number] MEDICAL RECORD#: [id number] ADMISSION DATE: 09/22/2020 DISCHARGE DATE: 09/26/2020 ATTENDING MD: : AGE: 75 MARITAL STATUS: M DC PLAN ID: [id number] FACILITY: [facility] PRINTED ON: 09/28/20 15:52 CT All edits/amendments must be made on the electronic document DICTATION DATE: 09/28/201551 FLOATMAN: ELIZABETH 09/28/201551 RPT#: [id number] DC DATE:09/26/20 STATUS: DIS IN [facility] [address] [place] [address] END OF REPORT
== END 2020-09-26 16:50 | disposition home health service (06) | DRG 813 ==
LOC: D.ER 16:53 → D.M2 18:21 → OBSVTIME 18:22 → D.M2 09-22 18:01
PROVIDERS: Family Medicine; Surgery; ADMIT Internal Medicine; ATTEND Internal Medicine
PROC: 2W09X6Z Change Pressure Dressing on Left Upper Extremity (ICD-10-PCS; principal; 2020-09-22 16:45)
PROC: 0JHL3XZ Insertion of Tunneled Vascular Access Device into Right Upper Leg Subcutaneous Tissue and Fascia, Percutaneous Approach (ICD-10-PCS; 2020-09-26)
PROC: 0JPW3XZ Removal of Tunneled Vascular Access Device from Lower Extremity Subcutaneous Tissue and Fascia, Percutaneous Approach (ICD-10-PCS; 2020-09-26)
PROC: 06PY33Z Removal of Infusion Device from Lower Vein, Percutaneous Approach (ICD-10-PCS; 2020-09-26)
PROC: 06HM33Z Insertion of Infusion Device into Right Femoral Vein, Percutaneous Approach (ICD-10-PCS; 2020-09-26)
PROC: B51B1ZA Fluoroscopy of Right Lower Extremity Veins using Low Osmolar Contrast, Guidance (ICD-10-PCS; 2020-09-26)
DX: D68.9 Coagulation defect, unspecified (principal); N18.6 End stage renal disease; T82.590A Other mechanical complication of surgically created arteriovenous fistula, initial encounter; I12.0 Hypertensive chronic kidney disease with stage 5 chronic kidney disease or end stage renal disease; R23.3 Spontaneous ecchymoses; E11.22 Type 2 diabetes mellitus with diabetic chronic kidney disease; Z99.2 Dependence on renal dialysis; D63.1 Anemia in chronic kidney disease; Y83.9 Surgical procedure, unspecified as the cause of abnormal reaction of the patient, or of later complication, without mention of misadventure at the time of the procedure

== ENCOUNTER 2020-10-13 07:05 | Day surgery (SDC) | payer MEDICARE, OTHER ==
[~2020-10-13] VITALS: Ht 182.9 cm; Wt 120.2 kg
[~2020-10-13 07:05] MED LIST changes: +BAYER CHEWABLE81 MG PO; +FEXOFENADINE HC60 MG PO
[2020-10-13 07:42] LABS: BASOPHILS 0.7 % (0-2); HEMATOCRIT 31.7 % (42.0-54.0); HEMOGLOBIN 10.4 g/dL (13.5-17.5); IMMATURE GRANULOCYTES 1.2 % (0-5); LYMPHOCYTE ABS# 0.69 10x3/uL (1.32-3.57); LYMPHOCYTES 17.1 % (15-50); MCH 34.6 pg (26.0-34.0); MCHC 32.8 g/dL (31.0-37.0); MCV 105.3 fL (80.0-100.0); MEAN PLATELET VOLUME 8.5 fL (7.4-10.4); MONOCYTES 13.4 % (2-11); NEUTROPHIL ABS# 2.57 10x3/uL (1.78-5.38); NEUTROPHILS 63.6 % (40-80); PLATELET COUNT 96 10x3/uL (130-400); RBC 3.01 10x6/uL (4.20-6.10); RDW 14.9 % (11.5-14.5)
[2020-10-13 07:51] LABS: ANION GAP 20.2 mmol/L (8-16); CREATININE - SERUM 8.8 mg/dL (0.6-1.3); INR 1.2 (0.85-1.17); POTASSIUM - SERUM 5.2 mmol/L (3.5-5.1); PROTIME 14.1 SECONDS (11.6-15.0)
[2020-10-13 08:37] VITALS: BP 133/73; Ht 182.9 cm; Wt 120.2 kg
--- NOTE | 2020-10-13 09:27 | NUR ---
0914 LAB RESULTS CALLED TO DR. STANTON. STATES IS OKAY FOR SURGERY. Lamberto AKBAR R.N.
--- NOTE | 2020-10-13 11:25 | NUR ---
1110 ICE APPLIED, EXPLAINED ORDER WAS FOR 10 MIN ON AND 10 MINUTES OFF FOR THE NEXT 2 HOURS. SET HER PHONE ALARM TO KEEP UP WITH THE 10 MIN TIME FRAME.
--- NOTE | 2020-10-13 12:16 | NUR ---
IV D/C'D WITH CANNULA INTACT, PRESSURE HELD AND DRSG PLACED. DISCHARGE INSTRUCTIONS GIVEN AND PT AND DAUGHTER VERBALIZED AN UNDERSTANDING. DENIES PAIN BUT STATES HE DOES HAVE AN RX FOR HYDROCODONE AT HOME. DISCHARGED IN STABLE CONDITION
--- NOTE | 2020-10-13 16:12 | OP ---
PATIENT NAME: PEYTON SHEPPARD MEDICAL RECORD: [id number] :43 LOCATION:[facility] ADMISSION DATE: SURGEON: CHANDNI STANTON MD DATE OF OPERATION: 10/13/2020 REFERRED BY: Dr. Barakat. 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 OPERATION: The patient was returned to the operating room today as an outpatient for local excision of the wound to the left arm and delayed primary closure. SURGEON: Chandni Stanton MD ANESTHESIA: General with LMA per POUND ATTENDANT PREOPERATIVE NOTE: Mr. Sheppard's wound has responded very nicely to wound VAC therapy. It is granulating and tommie and much smaller than 2 weeks ago. The surrounding tissues are no longer indurated and I fully expecting a good result from excision and primary closure. This should speed or being able to return him to the operating room for implantation of a new AV graft in the left arm. DESCRIPTION OF PROCEDURE: Under anesthesia, the patient was placed in supine position with left arm abducted, prepped and draped in a sterile manner. The wound 15 cm x 15 cm long x 6 cm wide was then outlined with an incision just outside of the skin margin surrounding the area of granulation. The tissue was then elevated with sharp and electrocautery dissection and the underlying cephalic vein AV fistula was opened and a large amount of organizing liquefying thrombus was aspirated and removed by gentle friction and compression. The wound was then irrigated generously with saline containing Ancef and gentamicin, and the wound margins infiltrated with 0.25% Marcaine with epinephrine. The wound margins were then elevated as short flaps with electrocautery and sharp dissection and the primary wound closure then performed with running vertical mattress sutures of 3-0 Vicryl. The incision was then also sealed with Dermabond glue and dressed with Maxorb AG, Tegaderm, Cavilon skin prep. In order to keep some additional pressure on the wound, I applied a folded group of 4 x 4 dressing sponges and then wrapped the arm with a 4-inch roll of cast padding and then applied a rolled 4-inch Coban elastic dressing in an effort to apply some gentle pressure to the wound without extreme pressure to the overall arm, which might cause severe edema. The patient was then awakened and in stable condition taken to the recovery room. Bleeding during the operation was not as severe as it had been during prior surgeries, but due to his history of coagulopathic postoperative bleeding and his existing preoperative low platelet count, I did order a unit of pheresed OPERATIVE REPORT [id number] [facility] platelets for the patient, which he was then to receive in the recovery room. Blood loss, otherwise was about 5 cc, unreplaced. Sponges, instruments and needles were accounted for. No drain was utilized. I plan to see the patient back in my office probably on . He is instructed to remove the elastic wrap and cast padding tomorrow, but he is to leave the adhesive plastic Tegaderm dressings intact and keep the area dry and clean. I will plan to remove the dressing when I see him in my office if not, this week, then probably next week. He is to continue all of the same medications. No new prescriptions were written today. I did obtain cultures of the wound for aerobic and anaerobic organisms and he may be prescribed additional antibiotics based on the results of those swabs. I will plan to return the patient to the operating room hopefully in about 2 weeks for implantation of the graft. TRANSINT:[id number] Voice Confirmation ID: [id number] DOCUMENT ID: [id number] CHANDNI STANTON MD at 1612 CC: VIOLA BARAKAT MD [id number] DICTATION DATE: 10/13/20 1134 [employer] ANALYST: 10/13/20 1358 [facility] 10/13/20 [facility] [address] [place] [address]
== END 2020-10-13 12:18 | disposition home or self-care (01) ==
LOC: D.OPS 07:05
PROVIDERS: ATTEND Surgery
DX: N18.6 End stage renal disease (principal); Z99.2 Dependence on renal dialysis; I10 Essential (primary) hypertension; E11.9 Type 2 diabetes mellitus without complications; T82.7XXA Infection and inflammatory reaction due to other cardiac and vascular devices, implants and grafts, initial encounter